=== PATIENT | female | born 1960 | race Caucasian/White ===

== ENCOUNTER 2016-11-07 10:12 | Emergency (ER) | payer BC ==
[2016-11-07 10:19] VITALS: BP 146/76
[2016-11-07] MEDS ORDERED: Tetan/Diph/Pertus SYR(Tdap)* 0.5 ML SYR(BOOSTRIX) use SYR IM ONE (12:03)
--- NOTE | 2016-11-07 12:15 | UC ---
Skin Complaint HPI - HPI Summary HPI Summary: 1) stepped off of a curb yesterday and felt sharp pain on bottom of R foot near 5th distal MT. Did not see open area in shoe or foot, but saw several bent-over nails in the area where she had stepped. Area is still a little sore. Last tdap was 2009. 2) gets precancerous areas tx with liquid nitrogen at derm, had treatments last week on both hands. A couple areas blistered up (which is normal), but one looks very dark red/brown and pt is not sure if this is ok. - History of Current Complaint Chief Complaint: UCSkin Time Seen by Provider: 11/07/16 11:48 Stated Complaint: PUNCTURE WOUND TO FOOT SKIN ISSUE Hx Obtained From: Patient ?: No Onset/Duration: Sudden Onset Timing: Constant Onset Severity: Mild Current Severity: Mild Location: Discrete Character: Pain, Raised Aggravating: Touch Alleviating: Nothing Associated Signs & Symptoms: Positive: Negative - Allergy/Home Medications Allergies/Adverse Reactions: Allergies Allergy/AdvReac Type Severity Reaction Status Date / Time No Known Allergies Allergy Verified 03/14/12 15:57 Review of Systems Constitutional: Negative Skin: Other - blisters, sore spot on foot Eyes: Negative ENT: Negative Respiratory: Negative Cardiovascular: Negative Gastrointestinal: Negative Genitourinary: Negative Motor: Negative Neurovascular: Negative Musculoskeletal: Negative Neurological: Negative Psychological: Negative All Other Systems Reviewed And Are Negative: Yes PMH/Surg Hx/FS Hx/Imm Hx Previously Healthy: Yes - Surgical History Surgical History: Yes Surgery Procedure, Year, and Place: tonsils. D&C 06/2011 endometrial polyp. heart cath 2005 - Family History Known Family History: Negative: Blood Disorder - Social History Alcohol Use: None Substance Use Type: None Smoking Status (MU): Never Smoked Tobacco - Immunization History Most Recent Tetanus Shot: 2009 Physical Exam Triage Information Reviewed: Yes Appearance: Well-Appearing, No Pain Distress, Obese Vital Signs: Initial Vital Signs Temp 98 F 11/07/16 10:16 Pulse 72 11/07/16 10:16 Resp 16 11/07/16 10:16 BP 146/76 11/07/16 10:16 Pulse Ox 100 11/07/16 10:16 Vital Signs Reviewed: Yes Eye Exam: Normal Eyes: Positive: Conjunctiva Clear ENT Exam: Normal ENT: Positive: Normal ENT inspection, Hearing grossly normal, Pharynx normal, TMs normal Dental Exam: Normal Neck exam: Normal Respiratory Exam: Normal Respiratory: Positive: Chest non-tender, Lungs clear, Normal breath sounds, No respiratory distress, No accessory muscle use Musculoskeletal Exam: Normal Musculoskeletal: Positive: Strength Intact, ROM Intact Neurological Exam: Normal Psychological Exam: Normal Skin Exam: Other - R sole of foot intact, no bleeding, PW, FB, or plantar wart noted blisters to R 3rd finger and L 4th finger intact, R hand hemorrhagic Course/Dx - Diagnoses Provider Diagnoses: Contusion to R foot vs. PW. hemorrhagic blisters to bilat hands from liquid nitrogen soto Discharge - Discharge Plan Condition: Stable Disposition: HOME Patient Education Materials: Contusion in Adults (ED), Second Degree Burn (ED) Referrals: Amaris Gorman NP [Primary Care Provider] - Additional Instructions: I do not believe your foot sustained a puncture wound, but we have provided a tetanus shot just in case. The bleeding in the blisters on your fingers is not unusual given the size of the injury or the location.
== END 2016-11-07 12:30 | disposition home or self-care (01) ==
LOC: UCEAST 10:12
DX: S90.31XA Contusion of right foot, initial encounter (principal); S91.311A Laceration without foreign body, right foot, initial encounter; S60.425A Blister (nonthermal) of left ring finger, initial encounter; S60.423A Blister (nonthermal) of left middle finger, initial encounter; W93.11XA Contact with liquid air, initial encounter
CPT/HCPCS: 90471; 90715; 99211; G0463

== ENCOUNTER 2018-11-10 07:22 | Emergency (ER) | payer SELFPAY ==
--- OUTSIDE RECORDS SUMMARY | 2018-11-10 07:30 | XMS REPORT | Continuity of Care Document ---
:1960 External Reference #:[id number] Author Name Sharona Burrell Care Team Providers Name Role Phone Bernadette Almeida MD Primary Care Physician Unavailable Payers Date Identification Numbers Payment Provider Subscriber Effective: 2013 Policy Number: [id number] [employer] Marco Rodriguez PayID: [id number] [address] [place] [address] Effective: 2009 Policy Number: [id number] [employer] Marco Rodriguez Expires: 2011 Group Number: [id number] [address] PayID: [id number] [place] [address] Problems Active Problems Provider Date Benign essential hypertension Amaris Gorman, N.P. Onset: 03/10/2011 Hyperlipidemia Amaris Gomran, N.P. Onset: 03/10/2011 Morbid obesity Amaris Gorman, N.P. Onset: 03/10/2011 Obstructive sleep apnea syndrome Ceci Valera DNP, RN, PRESCHOOL AIDE- Onset: 02/2016 Seasonal allergic rhinitis Óscar Davison M.D.,[facility] Onset: 12/17/2016 Note: and sinusitis Pure hypercholesterolemia Caterina Abad M.D. Onset: 01/19/2017 Body mass index 40+ - severely obese Caterina Abad M.D. Onset: 01/19/2017 Cardiomegaly Caterina Abad M.D. 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 No pets in home / Mother has dog ETOH Use Denies alcohol use Tobacco Use Start: Unknown Patient has never smoked Recreational Drug Use Denies Drug Use Smoking Status Reviewed: 10/20/18 Patient has never smoked Exercise Type/Frequency Exercises sporadically walk Allergies, Adverse Reactions, Alerts Active Allergies Reaction Severity Comments Date Cipro Muscle Pain 12/19/2015 Benzonatate Feeling of throat closure 06/26/2016 Inactive Allergies NKDA 12/09/2005 Medications Active Medications SIG Qnty Indications Ordering Date Provider Amoxicillin/Clavulanate one tablet by 28tabs J01.90 [place] Potassium mouth twice daily Varn, N.P. 9 875-125mg Tablets for 10 days Metoprolol Succinate ER 1/2 every in the 45tabs [place] 100mg morning Varn, N.P. 8 Tablets ER 24HR Fluconazole one by mouth every 3tabs J01.90 [place] 150mg Tablets 3 days for 3 doses Varn, N.P. 8 Lorazepam 1 po bid prn 10tabs F41.1 [place] 1mg Tablets anxiety Varn, N.P. 8 Nystatin after cleansing 60gm B37.2 [place], [id number]/GM Powder and drying [employer] 8 affected area, apply powder liberally every 8 hours Mometasone Furoate reports 17units [place] 50mcg/Act hasn't been using Varn, N.P. 8 Suspension instill 2 sprays into both nostrils twice a day Mupirocin insert 44gm [place] 2% Ointment intranasally twice Varn, N.P. 8 a day for 7 days. Miguelito Mancilla, 5% Cream 7 Simvastatin 1 by mouth every 90tabs [place] 20mg Tablets day Varn, N.P. 6 Niacin ER One po daily 90tabs [place] (Antihyperlipidemic) Varn, N.P. 6 500mg Tablets ER Hydrochlorothiazide take 1 tablet once 30tabs [place] 50mg daily Varn, N.P. 2 Tablets Valacyclovir HCL take 1 tablet by 30tabs [place] 500mg Tablets mouth once daily Varn, N.P. 1 as needed Triamcinolone Acetonide apply twice a day 30gm [place] 0.1% until clear Varn, N.P. 1 Cream Accupril 1 by mouth twice a 180tabs [place] 40mg Tablets day Varn, N.P. 6 Docusate Sodium 2 cap at bedtime Unknown 100mg Capsules prn ( takes 1 tab) 0 Align 1 by mouth every Unknown 4mg Capsules day 0 Singulair 1 by mouth every 30tabs [place] 10mg Tablets day Varn, N.P. 0 Refresh Optive Advanced as needed Unknown 0 0.5-1-0.5% Solution Calcium 600 + D 1 by mouth every Unknown [id number] day 0 Tablets Multivitamins 1 by mouth every Unknown Capsules day 0 [place]-3 Fish Oil 1 tablet po t.i.d Unknown 1200mg 0 Capsules Vitamin D3 1 tablet po qd Unknown 2000Iu 0 Aspirin 1 po qd Unknown 81mg Chewtabs 0 Fexofenadine HCL 1 po qd 30tabs Unknown 180mg Tablets 0 History Medications Amoxicillin/Clavulanate one tablet by 20tabs J01.90 [place] 08/19/2018 - Potassium mouth twice Varn, N.P. 08/29/2018 875-125mg Tablets daily for 10 days Erythromycin apply to right 3.500gm [place] 04/25/2018 - 5mg/GM Ointment eyelids twice a Varn, N.P. 05/09/2018 day until clear Amoxicillin/Clavulanate one tablet by 20tabs J01.90 [place] 03/21/2018 - Potassium mouth twice Varn, N.P. 03/31/2018 875-125mg Tablets daily for 10 days Metoprolol Succinate ER 1/2 every in 45tabs [place] 12/27/2017 - 100mg the morning Varn, N.P. 03/21/2018 Tablets ER 24HR Amoxicillin/Clavulanate one tablet by 20tabs J01.90 [place] 12/06/2017 - Potassium mouth twice Varn, N.P. 12/16/2017 875-125mg Tablets daily for 10 days Clotrimazole/Betamethasone apply 2 - 3 45gm N77.1 [place] 11/15/2017 - Dipropionate times daily as Varn, N.P. 01/25/2018 1-0.05% Cream needed Fluconazole one by mouth 4tabs B37.2 [place] 09/24/2017 - 150mg Tablets every 3 days Varn, N.P. 12/18/2017 for 4 doses Fluconazole one by mouth 3tabs [place] 09/07/2017 - 150mg Tablets may every 3 Varn, N.P. 09/16/2017 days x 3 doses Amoxicillin/Clavulanate one tablet by 20tabs H66.93 [place] 09/06/2017 - Potassium mouth twice Varn, N.P. 09/16/2017 875-125mg Tablets daily for 10 days Cheratussin ac take 5-10 118ml J20.9 [place] 09/06/2017 - 100-10mg/5ML Syrup milliliters Varn, N.P. 09/20/2017 every 4-6 hours as needed for cough. Ventolin HFA 1 to 2 18units J20.9 [place] 09/06/2017 - 108(90Base) mcg/Act inhalations Varn, N.P. 09/20/2017 Aerosol every 4 hours as needed Fluconazole one by mouth 3tabs [place], 08/06/2017 - 150mg Tablets may repeat in 3 [employer] 08/13/2017 days as needed Augmentin 1 tablet by 10tabs [place] 06/21/2017 - 875-125mg Tablets mouth q12 hours Varn, N.P. 06/29/2017 for 5 days Amoxicillin/Clavulanate take one tablet 20tabs J01.90 [place], 2017 - Potassium q12 hours for [employer] 06/19/2017 875-125mg Tablets 10 days Nyata Apply to 90gm [place] 04/28/2017 - 600851Cama/GM Powder affected areas Varn, N.P. 01/25/2018 2 - 3 times daily prn Proctocort insert per 24units [place] 03/24/2017 - 30mg Suppository rectum twice a Varn, N.P. 09/06/2017 day until better Guaifenesin ac 10 - 15 ml by 180ml [place] 03/10/2017 - 100-10mg/5ML Syrup mouth every 4-6 Varn, N.P. 03/24/2017 hours as needed cough Metoprolol Succinate ER 1 by mouth 90tabs [place] 02/17/2017 - 50mg every evening Varn, N.P. 02/27/2017 Tablets ER 24HR Mupirocin apply once 44gm L98.9 [place] 02/17/2017 - 2% Ointment daily to rash Varn, N.P. 03/03/2017 Cephalexin one three times 21tabs L98.9 [place] 02/17/2017 - 500mg Tablets daily for 7 Varn, N.P. 02/24/2017 days Fluconazole one by mouth 3tabs J01.90 [place] 11/19/2016 - 150mg Tablets every 3 days Varn, N.P. 02/26/2017 for 3 doses Amoxicillin/Clavulanate one tablet by 20tabs J01.90 [place] 11/19/2016 - Potassium mouth twice Varn, N.P. 11/29/2016 875-125mg Tablets daily for 10 days Proair HFA take 1-2 puffs 8.5units [place], 06/29/2016 - 108(90Base) mcg/Act every 4-6 hours [employer] 07/13/2016 Aerosol as needed for shortness of breath. Cefuroxime Axetil one tablet 20tabs J01.90 [place], 06/26/2016 - 250mg Tablets twice daily for [employer] 07/04/2016 10 days. Cheratussin ac take 5-10 118ml J01.90 [place], 06/26/2016 - 100-10mg/5ML Syrup milliliters [employer] 07/04/2016 every 4-6 hours as needed for cough. Augmentin one by mouth 28tabs H66.92 [place] 05/01/2016 - 875-125mg Tablets every 12 hours Varn, N.P. 05/15/2016 for 14 days Augmentin one by mouth 20tabs J01.00 [place] 04/03/2016 - 875-125mg Tablets every 12 hours Varn, N.P. 04/13/2016 for ten days Doxycycline Monohydrate 20 milliliters Unknown 12/10/2015 - 25mg/5ML by mouth twice 12/17/2015 Suspension Rec a day for 1 week Ceftin one by mouth 20tabs J01.00 [place] 07/17/2015 - 500mg Tablets twice daily for Varn, N.P. 07/27/2015 10 days Medrol (Javier) 6 tablets po 1Pak [place] 07/05/2015 - 4mg Tablets day 1 5 Varn, N.P. 07/11/2015 tablets po day 2 4 tablets po day 3 3 tablets po day 4 2 tablets po day 5 1 tablet po day 6 Flovent HFA 2 puffs twice 12gm [place] 07/05/2015 - 110mcg/Act Aerosol daily Varn, N.P. 07/19/2015 Levaquin 1 by mouth 10tabs J01.90 [place], 06/17/2015 - 500mg Tablets every day [employer] 06/27/2015 Cheratussin ac take 5-10 118ml R05 [place], 06/17/2015 - 100-10mg/5ML Syrup milliliters [employer] 06/21/2015 every 4-6 hours as needed for cough. Zofran Odt dissolve one 20tabs R11.0 [place] 06/17/2015 - 4mg Tablets Dispers tablet oraly [employer] 06/21/2015 every 8 hours for nausea Fluconazole one by mouth 3tabs [place] 05/24/2015 - 150mg Tablets every 3 days, Varn, N.P. 06/26/2016 for 3 doses Tobramycin 1 drop in each 5ml H10.9 [place] 05/24/2015 - 0.3% Solution eye every Varn, N.P. 05/31/2015 4hours x 7 days Amoxicillin/Clavulanate one tablet by 28tabs J01.00 [place] 05/24/2015 - Potassium mouth twice Varn, N.P. 06/07/2015 875-125mg Tablets daily for 14 days Levaquin 1 by mouth 7tabs [place] 04/23/2015 - 500mg Tablets daily for 7 Varn, N.P. 04/30/2015 days Levofloxacin one by mouth 10tabs [place] 04/10/2015 - 500mg Tablets daily for 10 Varn, N.P. 04/20/2015 days Fluticasone Propionate sprays each 16units [place] 01/31/2015 - 50mcg/Act nostril daily Varn, N.P. 03/02/2015 Suspension as needed Levofloxacin one by mouth 10tabs [facility], 01/03/2015 - 500mg Tablets daily for 10 [employer] 01/17/2015 days Augmentin 1 tablet by 20tabs 461.0 [facility], 12/24/2014 - 875-125mg Tablets mouth q12 hours [employer] 01/04/2015 for 10 days Fluconazole one by mouth 3tabs J01.00 [place] 12/24/2014 - 150mg Tablets every 3 days Varn, N.P. 05/24/2015 for 3 doses Levaquin 1 by mouth 10tabs 461.0 [place] 07/18/2014 - 500mg Tablets daily for 10 Varn, N.P. 07/28/2014 days Denavir apply three 30.0units 054.79 [place] 07/18/2014 - 1% Cream times daily as Varn, N.P. 05/01/2016 needed Fluconazole one by mouth 3tabs 461.0 [place] 07/18/2014 - 150mg Tablets every 3 days Varn, N.P. 12/24/2014 for 3 doses Levaquin 1 by mouth 10tabs 461.0 [place] 05/21/2014 - 500mg Tablets daily for 10 Varn, N.P. 05/31/2014 days Xanax one by mouth up 10tabs 300.00 [place] 05/21/2014 - 0.25mg Tablets to three times Varn, N.P. 05/01/2016 daily as needed for anxiety Diflucan one po q 3 days 3tabs 461.0 [place] 05/21/2014 - 150mg Tablets Varn, N.P. 01/22/2015 Flovent HFA 2 puffs twice 1units [facility], 04/30/2014 - 44mcg/Act Aerosol daily for 10 [employer] 05/21/2014 days Guaifenesin ac 10ml every 4-6 473ml [facility], 04/23/2014 - 100-10mg/5ML Syrup hours for cough [employer] 05/21/2014 Azithromycin 2 tabs by mouth 6tabs 466.0 [facility], 04/19/2014 - 250mg Tablets every day x1 [employer] 05/21/2014 day, 1 tab by mouth every day x 4 days Benzonatate take one or two 30caps 466.0 [facility], 04/19/2014 - 100mg Capsules capsules every [employer] 05/21/2014 8 hours as needed for cough. Amoxicillin/Clavulanate one tablet by 28tabs 461.0 [place] 03/23/2014 - Potassium mouth twice Varn, N.P. 04/06/2014 875-125mg Tablets daily for 14 days Vitamin D (Ergocalciferol) one po once 8caps [place] 02/26/2014 - weekly Varn, N.P. 02/26/2014 26322Htbk Capsules Miconazole 3 Apply bid until 60gm 112.3 [place] 02/26/2014 - 4% Cream rash clears Varn, N.P. 11/19/2016 Augmentin one by mouth 20tabs 461.0 [place] 01/31/2014 - 875-125mg Tablets every 12 hours Varn, N.P. 02/10/2014 for ten days Fluconazole one by mouth 9tabs 461.0 [place] 01/31/2014 - 150mg Tablets every 3 days Varn, N.P. 02/09/2014 Levaquin 1 by mouth 10tabs [place] 08/14/2013 - 500mg Tablets daily for 10 Varn, N.P. 08/24/2013 days Augmentin one by mouth 20tabs 461.0 [place] 08/04/2013 - 875-125mg Tablets every 12 hours Varn, N.P. 08/14/2013 for ten days Fluconazole one po q 3 days 3tabs 461.0 [place] 08/04/2013 - 150mg Tablets Varn, N.P. 01/31/2014 Augmentin one by mouth 20tabs 461.0 [place] 05/16/2013 - 875-125mg Tablets every 12 hours Varn, N.P. 05/26/2013 for ten days Augmentin one by mouth 20tabs 461.0 [place] 02/21/2013 - 875-125mg Tablets every 12 hours Varn, N.P. 03/03/2013 for ten days Anucort-HC insert 30units 578.1 [place] 02/21/2013 - 25mg Suppository suppository in Varn, N.P. 02/28/2013 rectum twice a day for7 days Azithromycin two tabs day 6tabs [place] 12/19/2012 - 250mg Tablets one, one daily Varn, N.P. 12/24/2012 till gone Diltiazem HCL take 1 tablet 90tabs I10 [place] 12/02/2012 - 60mg Tablets by mouth once Varn, N.P. 02/17/2017 daily Alprazolam one by mouth up 20tabs 300.00 [place] 11/23/2012 - 0.25mg Tablets to three times Varn, N.P. 02/26/2014 daily as needed for anxiety Doxycycline Hyclate 100 mg orally 14tabs 461.0 [facility] 09/08/2012 - 100mg Tablets twice daily x 7 [facility], 09/08/2012 DR days N.P. Amoxicillin/Clavulanate one tablet by 20tabs 461.0 [facility] 09/08/2012 - Potassium mouth twice [facility], 11/23/2012 875-125mg Tablets daily for 10 N.P. days Diflucan po x1 day 1tabs 461.0 [facility] 09/08/2012 - 150mg Tablets [facility]2012 N.P. Lotrisone apply 15gm [place] 07/01/2012 - 1-0.05% Cream externally Varn, N.P. 11/19/2016 bid-tid Diflucan sig 1 po repeat 2tabs [place] 06/27/2012 - 150mg Tablets in 3 days if Varn, N.P. 09/08/2012 needed Amoxicillin/Clavulanate one tablet by 20tabs 461.0 [place] 06/23/2012 - Potassium mouth twice Varn, N.P. 07/03/2012 875-125mg Tablets daily for 10 days Benzonatate one by mouth 30caps 461.0 [place] 06/23/2012 - 100mg Capsules three times Varn, N.P. 07/07/2012 daily as needed for cough Flovent HFA 2 puffs twice 1units 461.0 [place] 06/23/2012 - 44mcg/Act Aerosol daily Varn, N.P. 07/23/2012 Flovent HFA 2 puffs twice 1units 466.0 [place] 05/16/2012 - 44mcg/Act Aerosol daily Varn, N.P. 06/15/2012 Ventolin HFA 1 to 2 1inhaler 466.0 [place] 05/16/2012 - 108(90Base) mcg/ac inhalations Varn, N.P. 06/15/2012 Aerosol every 4 hours as needed Mupirocin prn 22gm [place] 05/16/2012 - 2% Ointment Varn, N.P. 11/19/2016 Azithromycin two tabs day 6tabs [place] 04/30/2012 - 250mg Tablets one, one daily Varn, N.P. 05/10/2012 till gone Benzonatate one by mouth 30caps [place] 04/29/2012 - 200mg Capsules three times Varn, N.P. 05/13/2012 daily as needed for cough Tamiflu 1 po bid x 5 10caps 466.0 [place] 04/29/2012 - 75mg Capsules days Varn, N.P. 04/30/2012 Sulfamethoxazole/Trimethopr one po bid for 20tabs 682.8 Evelyn Barraza, 03/23 - im DS 10 days M.D., FACP 04/02/2012 800-160mg Tablets Fluconazole 3 tablets po 6tabs 682.8 [place] 03/23/2012 - 100mg Tablets and repeat in 1 Varn, N.P. 04/06/2012 week Cardizem one po daily 90tabs 401.1 [place] 12/31/2011 - 60mg Tablets Varn, N.P. 12/02/2012 Amlodipine Besylate 1 po qd 30tabs 401.1 [place] 12/16/2011 - 5mg Tablets Varn, N.P. 12/31/2011 Nystatin apply twice 30gm 112.3 [place] 03/10/2011 - 754052Ogrk/GM Powder daily until Varn, N.P. 02/26/2014 rash clears prn Toprol XL 1 po bid 60tabs [facility]. 12/16/2005 - [facility] Hydrochlorothiazide 1 PO qd 90tabs [facility] S. 12/09/2005 - 25mg Tablets [facility], 10/01/2011 M.D. Pravachol One QHS [facility]beh S. 12/09/2005 - 40mg Tablets [facility], 03/10/2011 M.D. Aspirin 1 PO qd 90units [facility] S. 12/09/2005 - 325mg Gelcaps [facility], 03/10/2011 M.D. Toprol XL 1 po qd 30tabs [facility]. 11/26/2005 - 50[facility] 12/16[facility]2005 M.D. Allopurinol 1 po qd 30tabs Unknown - 100mg Tablets 10/01/2011 Simcor 1 by mouth 30tabs [facility] - 500-20mg Tablets ER 24HR every night Varn, N.P. 03/12/2016 Nasonex instill 2 17units [facility] - 50mcg/Act Suspension sprays into Varn, N.P. 07/26/2017 both nostrils twice a day Metoprolol Succinate ER take 1 tablet 45tabs [facility] - 100mg by mouth every Varn, N.P. 12/27/2017 Tablets ER 24HR day at bedtime Medications Administered in Office Medication SIG Qnty Indications Ordering Provider Date Depomedrol 40MG RAVIN Mc 05/26/2018 Injection Immunizations CPT Code Status Date Vaccine Lot # 60438 Given 01/06/2018 Influenza Virus Vaccine, Quadrivalent, Split, Preservative Free [id number] Given 01/08/2017 Influenza Virus Vaccine, Quadrivalent, Split, Preservative Free [id number] Given 01/08/2016 Afluria Vaccine 33770 Given 01/28/2011 Influenza Virus 3Yrs & Over Vital Signs Date Vital Result Comment 10/20/2018 10:31am Height 60 inches 5'0" Weight 236.00 lb Heart Rate 71 /min BP Systolic 121 mmHg BP Diastolic 71 mmHg Body Temperature 97.9 F O2 % BldC Oximetry 97 % BMI (Body Mass Index) 46.1 kg/m2 08/19/2018 10:13am Height 60 inches 5'0" Weight 238.00 lb Heart Rate 77 /min BP Systolic Sitting 128 mmHg BP Diastolic Sitting 79 mmHg Body Temperature 97.7 F O2 % BldC Oximetry 98 % BMI (Body Mass Index) 46.5 kg/m2 05/26/2018 10:10am Height 60 inches 5'0" Weight 234.00 lb BP Systolic 132 mmHg BP Diastolic 82 mmHg Respiratory Rate 16 /min Body Temperature 96.7 F Pain Level 0 BMI (Body Mass Index) 45.7 kg/m2 05/02/2018 10:37am Height 60 inches 5'0" Weight 234.00 lb Heart Rate 84 /min BP Systolic 145 mmHg BP Diastolic 77 mmHg Body Temperature 97.2 F O2 % BldC Oximetry 97 % BMI (Body Mass Index) 45.7 kg/m2 04/21/2018 10:32am Height 60 inches 5'0" Weight 237.00 lb Heart Rate 64 /min BP Systolic 121 mmHg BP Diastolic 65 mmHg Body Temperature 98.1 F O2 % BldC Oximetry 100 % BMI (Body Mass Index) 46.3 kg/m2 03/21/2018 10:51am Height 60 inches 5'0" Weight 232.00 lb Heart Rate 75 /min BP Systolic 138 mmHg BP Diastolic 76 mmHg Body Temperature 97.8 F O2 % BldC Oximetry 98 % BMI (Body Mass Index) 45.3 kg/m2 01/25/2018 2:28pm Height 60 inches 5'0" Weight 231.00 lb Heart Rate 62 /min BP Systolic 130 mmHg BP Diastolic 80 mmHg Body Temperature 97.5 F O2 % BldC Oximetry 98 % BMI (Body Mass Index) 45.1 kg/m2 01/12/2018 4:04pm Height 60 inches 5'0" Weight 230.00 lb Heart Rate 56 /min BP Systolic Sitting 150 mmHg BP Diastolic Sitting 78 mmHg O2 % BldC Oximetry 98 % BMI (Body Mass Index) 44.9 kg/m2 01/04/2018 10:50am Height 60 inches 5'0" Weight 232.00 lb Heart Rate 74 /min BP Systolic 158 mmHg BP Diastolic 82 mmHg Body Temperature 97.9 F O2 % BldC Oximetry 97 % BMI (Body Mass Index) 45.3 kg/m2 12/27/2017 1:13pm Height 60 inches 5'0" Weight 232.00 lb Heart Rate 66 /min BP Systolic 160 mmHg BP Diastolic 80 mmHg Body Temperature 97.7 F O2 % BldC Oximetry 99 % BMI (Body Mass Index) 45.3 kg/m2 12/14/2017 11:31am Height 60 inches 5'0" Weight 237.00 lb Heart Rate 61 /min BP Systolic 122 mmHg BP Diastolic 80 mmHg Body Temperature 97.0 F O2 % BldC Oximetry 98 % BMI (Body Mass Index) 46.3 kg/m2 12/06/2017 9:21am Height 60 inches 5'0" Weight 240.00 lb Heart Rate 69 /min BP Systolic 138 mmHg BP Diastolic 68 mmHg Body Temperature 96.6 F O2 % BldC Oximetry 99 % BMI (Body Mass Index) 46.9 kg/m2 11/15/2017 3:11pm Height 60 inches 5'0" Weight 243.00 lb Heart Rate 74 /min BP Systolic 136 mmHg BP Diastolic 78 mmHg Body Temperature 97.4 F O2 % BldC Oximetry 96 % BMI (Body Mass Index) 47.5 kg/m2 10/20/2017 2:44pm Height 60 inches 5'0" Weight 244.50 lb Heart Rate 66 /min BP Systolic Sitting 122 mmHg Lue large cuff BP Diastolic Sitting 66 mmHg Lue large cuff Respiratory Rate 18 /min O2 % BldC Oximetry 98 % On Ra BMI (Body Mass Index) 47.7 kg/m2 09/24/2017 2:28pm Height 60 inches 5'0" Weight 247.50 lb Heart Rate 81 /min BP Systolic 122 mmHg BP Diastolic 70 mmHg Body Temperature 97.2 F O2 % BldC Oximetry 97 % BMI (Body Mass Index) 48.3 kg/m2 09/06/2017 11:19am Height 60 inches 5'0" Weight 242.00 lb Heart Rate 73 /min BP Systolic Sitting 138 mmHg BP Diastolic Sitting 70 mmHg Body Temperature 99.1 F O2 % BldC Oximetry 91 % BMI (Body Mass Index) 47.3 kg/m2 08/06/2017 11:27am Weight 246.75 lb BP Systolic 124 mmHg BP Diastolic 70 mmHg Body Temperature 97.0 F 06/21/2017 8:46am Weight 244.00 lb Heart Rate 68 /min BP Systolic 124 mmHg BP Diastolic 68 mmHg Body Temperature 97.7 F O2 % BldC Oximetry 97 % 06/14/2017 11:28am Weight 238.25 lb Heart Rate 63 /min BP Systolic Sitting 138 mmHg BP Diastolic Sitting 80 mmHg O2 % BldC Oximetry 98 % 04/21/2017 1:20pm Height 60 inches 5'0" Weight 243.00 lb w/o shoes Heart Rate 64 /min reg BP Systolic Sitting 110 mmHg Lue, lg cuff BP Diastolic Sitting 76 mmHg Lue, lg cuff Respiratory Rate 16 /min O2 % BldC Oximetry 97 % on Ra BMI (Body Mass Index) 47.5 kg/m2 02/24/2017 3:33pm Weight 240.25 lb Heart Rate 67 /min BP Systolic 118 mmHg BP Diastolic 60 mmHg Body Temperature 98.3 F O2 % BldC Oximetry 96 % 02/17/2017 2:10pm Heart Rate 57 /min BP Systolic 128 mmHg BP Diastolic 80 mmHg Body Temperature 98.5 F O2 % BldC Oximetry 97 % 02/04/2017 1:21pm Height 50 inches 4'2" Weight 243.00 lb with shoes Heart Rate 66 /min BP Systolic Sitting 120 mmHg Lue lg cuff BP Diastolic Sitting 74 mmHg Lue lg cuff BP Systolic Standing 120 mmHg Lue lg cuff BP Diastolic Standing 80 mmHg Lue lg cuff Respiratory Rate 16 /min BMI (Body Mass Index) 68.3 kg/m2 Ejection Fraction 55-60% date 01/28/17 ECHO 02/02/2017 9:42am Heart Rate 108 /min BP Systolic 124 mmHg BP Diastolic 72 mmHg Body Temperature 97.4 F O2 % BldC Oximetry 98 % 01/26/2017 4:07pm Weight 245.50 lb Heart Rate 62 /min BP Systolic 120 mmHg BP Diastolic 70 mmHg Body Temperature 97.5 F O2 % BldC Oximetry 97 % 01/19/2017 2:27pm Height 59 inches 4'11" Weight 245.00 lb with shoes Heart Rate 70 /min BP Systolic 110 mmHg Rue lg cuff BP Diastolic 70 mmHg Rue lg cuff BP Systolic Sitting 118 mmHg Lue lg cuff BP Diastolic Sitting 80 mmHg Lue lg cuff BP Systolic Standing 120 mmHg Lue lg cuff BP Diastolic Standing 80 mmHg Lue lg cuff Respiratory Rate 17 /min BMI (Body Mass Index) 49.5 kg/m2 Ejection Fraction 60-65% date 04/06/14 ECHO 01/15/2017 4:17pm Weight 245.50 lb Heart Rate 62 /min BP Systolic 118 mmHg BP Diastolic 66 mmHg Body Temperature 98.2 F O2 % BldC Oximetry 99 % 12/17/2016 10:46am Weight 245.50 lb Heart Rate 63 /min BP Systolic Sitting 128 mmHg BP Diastolic Sitting 78 mmHg Body Temperature 97.8 F O2 % BldC Oximetry 98 % 11/26/2016 10:59am Height 60 inches 5'0" Weight 247.25 lb Heart Rate 58 /min BP Systolic 120 mmHg BP Diastolic 70 mmHg Body Temperature 98.1 F O2 % BldC Oximetry 98 % BMI (Body Mass Index) 48.3 kg/m2 11/19/2016 9:41am Weight 246.50 lb Heart Rate 60 /min BP Systolic 138 mmHg BP Diastolic 78 mmHg Body Temperature 98.2 F O2 % BldC Oximetry 97 % 10/13/2016 2:39pm Height 61 inches 5'1" Weight 250.00 lb Heart Rate 60 /min BP Systolic Sitting 118 mmHg BP Diastolic Sitting 62 mmHg Respiratory Rate 14 /min Pain Level 0 O2 % BldC Oximetry 98 % BMI (Body Mass Index) 47.2 kg/m2 09/09/2016 4:10pm Weight 253.75 lb Heart Rate 61 /min BP Systolic 130 mmHg BP Diastolic 78 mmHg Body Temperature 97.2 F O2 % BldC Oximetry 98 % 06/30/2016 3:55pm Weight 255.00 lb Heart Rate 77 /min BP Systolic 130 mmHg BP Diastolic 76 mmHg Body Temperature 98.7 F O2 % BldC Oximetry 98 % 06/29/2016 8:14am Height 60 inches 5'0" Weight 254.00 lb Heart Rate 78 /min BP Systolic Sitting 132 mmHg BP Diastolic Sitting 79 mmHg Respiratory Rate 16 /min O2 % BldC Oximetry 98 % BMI (Body Mass Index) 49.6 kg/m2 06/26/2016 9:08am Weight 254.00 lb Heart Rate 72 /min BP Systolic Sitting 126 mmHg BP Diastolic Sitting 78 mmHg Respiratory Rate 16 /min Body Temperature 99.1 F O2 % BldC Oximetry 98 % 05/01/2016 3:47pm Height 59.75 inches 4'11.75" Weight 258.00 lb Heart Rate 64 /min BP Systolic 136 mmHg BP Diastolic 80 mmHg Body Temperature 99.1 F O2 % BldC Oximetry 97 % BMI (Body Mass Index) 50.8 kg/m2 04/03/2016 8:38am Weight 262.00 lb Heart Rate 68 /min BP Systolic Sitting 132 mmHg BP Diastolic Sitting 80 mmHg BP Systolic Recheck 148 mmHg BP Diastolic Recheck 84 mmHg Respiratory Rate 15 /min Body Temperature 98.2 F O2 % BldC Oximetry 98 % 01/28/2016 3:56pm Height 59.75 inches 4'11.75" Weight 281.38 lb Heart Rate 86 /min BP Systolic 138 mmHg BP Diastolic 84 mmHg Respiratory Rate 14 /min O2 % BldC Oximetry 98 % BMI (Body Mass Index) 55.4 kg/m2 12/11/2015 7:59am Height 59.75 inches 4'11.75" Weight 291.00 lb Heart Rate 68 /min BP Systolic 128 mmHg BP Diastolic 88 mmHg Respiratory Rate 14 /min O2 % BldC Oximetry 96 % BMI (Body Mass Index) 57.3 kg/m2 11/11/2015 8:36am Height 59.75 inches 4'11.75" Weight 291.50 lb Heart Rate 85 /min BP Systolic 130 mmHg BP Diastolic 80 mmHg Respiratory Rate 14 /min O2 % BldC Oximetry 96 % BMI (Body Mass Index) 57.4 kg/m2 Neck Circumference in inches 16 10/03/2015 10:03am Height 59.75 inches 4'11.75" Weight 290.00 lb Heart Rate 78 /min BP Systolic Sitting 140 mmHg BP Diastolic Sitting 80 mmHg Body Temperature 97.0 F O2 % BldC Oximetry 98 % BMI (Body Mass Index) 57.1 kg/m2 07/17/2015 1:19pm Weight 292.00 lb Heart Rate 80 /min BP Systolic Sitting 124 mmHg BP Diastolic Sitting 80 mmHg Respiratory Rate 14 /min Body Temperature 98.4 F O2 % BldC Oximetry 98 % 06/17/2015 9:23am Weight 289.00 lb Heart Rate 82 /min BP Systolic Sitting 132 mmHg BP Diastolic Sitting 82 mmHg Respiratory Rate 14 /min Body Temperature 100.0 F O2 % BldC Oximetry 98 % 05/24/2015 11:20am Weight 291.00 lb Heart Rate 72 /min BP Systolic Sitting 122 mmHg BP Diastolic Sitting 82 mmHg Respiratory Rate 14 /min Body Temperature 98.5 F O2 % BldC Oximetry 98 % 04/10/2015 11:26am Weight 291.25 lb Heart Rate 75 /min BP Systolic Sitting 132 mmHg BP Diastolic Sitting 77 mmHg Body Temperature 98.1 F O2 % BldC Oximetry 98 % 01/10/2015 9:42am Weight 291.00 lb Heart Rate 78 /min BP Systolic Sitting 124 mmHg BP Diastolic Sitting 68 mmHg Body Temperature 97.5 F 01/08/2015 3:14pm Weight 290.00 lb Heart Rate 84 /min BP Systolic Sitting 138 mmHg BP Diastolic Sitting 86 mmHg Body Temperature 98.0 F O2 % BldC Oximetry 98 % 12/24/2014 1:45pm Height 60 inches 5'0" Weight 290.25 lb Heart Rate 92 /min BP Systolic Sitting 132 mmHg BP Diastolic Sitting 80 mmHg Body Temperature 98.1 F O2 % BldC Oximetry 97 % BMI (Body Mass Index) 56.7 kg/m2 07/18/2014 3:01pm Height 60 inches 5'0" Weight 290.00 lb Heart Rate 78 /min BP Systolic 137 mmHg BP Diastolic 72 mmHg BMI (Body Mass Index) 56.6 kg/m2 05/21/2014 2:10pm Weight 287.00 lb Heart Rate 74 /min BP Systolic Sitting 122 mmHg BP Diastolic Sitting 80 mmHg Body Temperature 98.1 F 04/19/2014 10:36am Height 58.75 inches 4'10.75" Weight 285.50 lb Heart Rate 86 /min BP Systolic Sitting 128 mmHg BP Diastolic Sitting 72 mmHg Body Temperature 98.6 F O2 % BldC Oximetry 96 % BMI (Body Mass Index) 58.1 kg/m2 04/09/2014 3:23pm Height 58.75 inches 4'10.75" Weight 286.00 lb without shoes Heart Rate 78 /min BP Systolic 110 mmHg Ra lg cuff BP Diastolic 64 mmHg Ra lg cuff BP Systolic Sitting 124 mmHg LA lg cuff BP Diastolic Sitting 80 mmHg LA lg cuff BP Systolic Standing 130 mmHg LA lg cuff BP Diastolic Standing 80 mmHg LA lg cuff Respiratory Rate 17 /min BMI (Body Mass Index) 58.3 kg/m2 03/23/2014 11:21am Height 60.5 inches 5'0.50" Weight 285.00 lb Heart Rate 60 /min BP Systolic Sitting 122 mmHg BP Diastolic Sitting 68 mmHg Body Temperature 97.8 F O2 % BldC Oximetry 99 % BMI (Body Mass Index) 54.7 kg/m2 02/26/2014 9:15am Height 60.5 inches 5'0.50" Weight 286.00 lb Heart Rate 72 /min BP Systolic Sitting 120 mmHg BP Diastolic Sitting 78 mmHg BMI (Body Mass Index) 54.9 kg/m2 01/31/2014 2:07pm Weight 290.50 lb Heart Rate 75 /min BP Systolic Sitting 140 mmHg BP Diastolic Sitting 78 mmHg Body Temperature 99.3 F oral O2 % BldC Oximetry 99 % 10/16/2013 2:28pm Weight 292.50 lb Heart Rate 84 /min BP Systolic Sitting 136 mmHg BP Diastolic Sitting 84 mmHg Body Temperature 97.6 F 08/04/2013 11:33am Weight 294.00 lb Heart Rate 77 /min BP Systolic 132 mmHg BP Diastolic 82 mmHg Body Temperature 98.1 F 05/16/2013 8:38am Weight 288.75 lb Heart Rate 88 /min BP Systolic Sitting 160 mmHg BP Diastolic Sitting 84 mmHg Body Temperature 98.3 F 02/21/2013 4:35pm Weight 286.00 lb Heart Rate 84 /min BP Systolic 150 mmHg BP Diastolic 82 mmHg Body Temperature 98.7 F 01/20/2013 1:44pm Weight 286.00 lb Heart Rate 84 /min BP Systolic Sitting 134 mmHg BP Diastolic Sitting 82 mmHg 11/23/2012 11:11am Weight 284.75 lb Heart Rate 88 /min BP Systolic Sitting 142 mmHg BP Diastolic Sitting 84 mmHg Body Temperature 97.6 F 09/08/2012 12:25pm Height 60 inches 5'0" Weight 291.25 lb Heart Rate 92 /min BP Systolic Sitting 144 mmHg BP Diastolic Sitting 84 mmHg Respiratory Rate 18 /min Body Temperature 98.1 F O2 % BldC Oximetry 95 % BMI (Body Mass Index) 56.9 kg/m2 07/13/2012 3:09pm Height 60 inches 5'0" Weight 287.00 lb Heart Rate 84 /min BP Systolic Sitting 140 mmHg BP Diastolic Sitting 88 mmHg Body Temperature 98.9 F Tympanically BMI (Body Mass Index) 56.0 kg/m2 06/23/2012 11:14am Height 60 inches 5'0" Weight 289.00 lb Heart Rate 84 /min BP Systolic Sitting 140 mmHg BP Diastolic Sitting 80 mmHg Body Temperature 98.5 F BMI (Body Mass Index) 56.4 kg/m2 05/16/2012 12:59pm Height 60 inches 5'0" Weight 286.00 lb Heart Rate 78 /min BP Systolic Sitting 130 mmHg BP Diastolic Sitting 82 mmHg Body Temperature 98.8 F BMI (Body Mass Index) 55.8 kg/m2 04/29/2012 11:24am Height 60 inches 5'0" Weight 282.00 lb Heart Rate 76 /min BP Systolic Sitting 132 mmHg BP Diastolic Sitting 84 mmHg Body Temperature 101.3 F BMI (Body Mass Index) 55.1 kg/m2 04/05/2012 8:54am Height 60 inches 5'0" Weight 281.00 lb Heart Rate 78 /min BP Systolic Sitting 130 mmHg BP Diastolic Sitting 80 mmHg BMI (Body Mass Index) 54.9 kg/m2 03/31/2012 4:01pm Height 60 inches 5'0" Weight 238.00 lb Heart Rate 78 /min BP Systolic Sitting 118 mmHg BP Diastolic Sitting 78 mmHg Body Temperature 98.9 F BMI (Body Mass Index) 46.5 kg/m2 03/23/2012 10:26am Height 60 inches 5'0" Weight 279.00 lb Heart Rate 70 /min BP Systolic Sitting 130 mmHg BP Diastolic Sitting 80 mmHg Body Temperature 98.5 F BMI (Body Mass Index) 54.5 kg/m2 03/01/2012 1:21pm Height 60 inches 5'0" Weight 282.00 lb Heart Rate 80 /min BP Systolic Sitting 152 mmHg BP Diastolic Sitting 92 mmHg BP Systolic Recheck 132 mmHg BP Diastolic Recheck 84 mmHg BMI (Body Mass Index) 55.1 kg/m2 01/18/2012 3:52pm Height 60 inches 5'0" Weight 282.00 lb Heart Rate 80 /min BP Systolic Sitting 158 mmHg home cuff readin/91 pulse 83 BP Diastolic Sitting 88 mmHg home cuff readin/91 pulse 83 BMI (Body Mass Index) 55.1 kg/m2 12/31/2011 10:15am Height 60 inches 5'0" Weight 280.25 lb Heart Rate 80 /min BP Systolic Sitting 152 mmHg BP Diastolic Sitting 90 mmHg BMI (Body Mass Index) 54.7 kg/m2 12/16/2011 9:54am Height 60 inches 5'0" Weight 278.00 lb Heart Rate 80 /min BP Systolic Sitting 154 mmHg BP Diastolic Sitting 90 mmHg Body Temperature 99.1 F BMI (Body Mass Index) 54.3 kg/m2 10/27/2011 2:40pm Height 60 inches 5'0" Weight 279.00 lb Heart Rate 84 /min BP Systolic Sitting 120 mmHg BP Diastolic Sitting 82 mmHg BMI (Body Mass Index) 54.5 kg/m2 10/06/2011 3:58pm Height 60 inches 5'0" Weight 278.00 lb Heart Rate 80 /min BP Systolic Sitting 126 mmHg BP Diastolic Sitting 84 mmHg Body Temperature 98.5 F BMI (Body Mass Index) 54.3 kg/m2 09/30/2011 11:32am Height 60 inches 5'0" Weight 278.00 lb Heart Rate 84 /min BP Systolic Sitting 158 mmHg BP Diastolic Sitting 86 mmHg BMI (Body Mass Index) 54.3 kg/m2 03/24/2011 1:16pm Height 60 inches 5'0" Weight 277.00 lb Heart Rate 72 /min BP Systolic Sitting 122 mmHg L BP Diastolic Sitting 78 mmHg L BMI (Body Mass Index) 54.1 kg/m2 03/10/2011 1:19pm Height 60 inches 5'0" Weight 282.00 lb Heart Rate 80 /min BP Systolic Sitting 132 mmHg l BP Diastolic Sitting 80 mmHg l BMI (Body Mass Index) 55.1 kg/m2 12/16/2005 2:04pm Height 60 inches 5'0" Heart Rate 78 /min Reg BP Systolic Sitting 144 mmHg BP Diastolic Sitting 80 mmHg 12/09/2005 2:50pm Height 60 inches 5'0" Weight 250.00 lb Heart Rate 92 /min reg BP Systolic Sitting 130 mmHg BP Diastolic Sitting 90 mmHg Body Temperature 97.8 F BMI (Body Mass Index) 48.8 kg/m2 Results Test Date Facility Test Result H/L Range Note MMRV Immune 10/07/2018 [facility] Rubella Screen Immune Immune Status Profile, [address] [place] [address] [phone] Rubeola Measles 10/07/2018 [facility] Rubeola Positive 1 Igg AB [address] (Measles) [place] [address] Antibody [phone] Rubeola IgG Antibody Index 4.1 2 Mumps Igg 10/07/2018 [facility] Mumps Virus IgG Antibody Positive [address] [place] [address] [phone] Mumps IgG Antibody Index 6.3 4 Varicella Zoster 10/07/2018 [facility] Varicella-Zoster IgG Positive 5 Igg AB [address] [place] [address] [phone] Varicella IgG Antibody Index >8.0 6 Urine Culture And 03/21/2018 [facility] Urine Culture SEE RESULT [address] [place] [address] [phone] Ua Routine 03/21/2018 [facility] Ua Specific 1005 [address] Ua PH 7 Ua Color yellow Ua Appera clear Ua WBC negative Ua Protein negative Ua Glucose negative Ua Ketones negative Ua Bilirubin negative Ua Urobilinogen negative Ua Nitrite negative Ua Occult Blood negative Laboratory test 01/04/2018 [facility] Hemoglobin A1c 4.9 % N 4.0-5.6 [address] (Glyco HGB) [place] [address] [phone] Ua Routine 12/14/2017 [facility] Ua Specific 1010 [address] Ua PH 5 Ua Color yellow Ua Appera clear Ua WBC trace Ua Protein negative Ua Glucose negative Ua Ketones negative Ua Bilirubin negative Ua Urobilinogen negative Ua Nitrite negative Ua Occult Blood negative Urine Culture And 12/06/2017 [facility] Urine Culture SEE RESULT [address] [place] [address] [phone] Ua Routine 12/06/2017 [facility] Ua Specific 1005 [address] Ua PH 6 Ua Color yellow Ua Appera clear Ua WBC negative Ua Protein negative Ua Glucose negative Ua Ketones negative Ua Bilirubin negative Ua Urobilinogen negative Ua Nitrite negative Ua Occult Blood negative Comp Metabolic Panel 11/19/2017 [facility] Sodium 140 mmol/L N 135-[address] [place] [address] [phone] Potassium 3.5 mmol/L N 3.5-5.0 Chloride 103 mmol/L N 101-111 Co2 Carbon Dioxide 29 mmol/L N 22-32 Anion Gap 8 mmol/L N 2-11 Glucose 98 mg/dL N 70-100 Blood Urea Nitrogen 13 mg/dL N 6-24 Creatinine 0.70 mg/dL N 0.51-0.95 BUN/Creatinine Ratio 18.6 N 8-20 Calcium 9.7 mg/dL N 8.6-10.3 Total Protein 6.9 g/dL N 6.4-8.9 Albumin 4.2 g/dL N 3.2-5.2 Globulin 2.7 g/dL N 2-4 Albumin/Globulin Ratio 1.6 N 1-3 Total Bilirubin 0.50 mg/dL N 0.2-1.0 Alkaline Phosphatase 62 U/L N 34-104 Alt 18 U/L N 7-52 Ast 20 U/L N 13-39 Egfr Non- 86.6 >60 Egfr 104.7 >60 10 Lipid Profile 11/19/2017 [facility] Triglycerides 128 mg/dL 11 (Trig/Chol/HDL) [address] [place] [address] [phone] Cholesterol 139 mg/dL 12 HDL Cholesterol 40.9 mg/dL 13 LDL Cholesterol 73 mg/dL 14 Laboratory test 11/19/2017 [facility] Vitamin D 38.5 ng/mL N 20-[address] Total 25(Oh) [place], [place] [id number] [phone] Rapid Influenza 09/06/2017 [facility] Influenza A NEGATIVE Negative 15 A & B Molecular [address] [place] [address] [phone] Influenza B Molecular NEGATIVE Negative Laboratory test 09/06/2017 [facility] Influenza A & B SEE RESULT [address] [place] [address] [phone] CBC Auto Diff 06/14/2017 [facility] White Blood 10.2 10^3/uL N 3.5-[address] Count .8 [place] [address] [phone] Red Blood Count 4.57 10^6/uL N 4.0-5.4 Hemoglobin 13.9 g/dL N 12.0-16.0 Hematocrit 40 % N 35-47 Mean Corpuscular Volume 88 fL N 80-97 Mean Corpuscular Hemoglobin 30 pg N 27-31 Mean Corpuscular HGB Conc 34 g/dL N 31-36 Red Cell Distribution Width 13 % N 10.5-15 Platelet Count 333 10^3/uL N 150-450 Mean Platelet Volume 8 um3 N 7.4-10.4 Abs Neutrophils 6.5 10^3/uL N 1.5-7.7 Abs Lymphocytes 2.6 10^3/uL N 1.0-4.8 Abs Monocytes 0.8 10^3/uL N 0-0.8 Abs Eosinophils 0.2 10^3/uL N 0-0.6 Abs Basophils 0.1 10^3/uL N 0-0.2 Abs Nucleated RBC 0 10^3/uL Granulocyte % 64.0 % N 38-83 Lymphocyte % 25.5 % N 25-47 Monocyte % 7.5 % N 1-9 Eosinophil % 2.1 % N 0-6 Basophil % 0.9 % N 0-2 Nucleated Red Blood Cells % 0 Comp Metabolic Panel 06/14/2017 [facility] Sodium 142 mmol/L N 133-145 [address] [place] [address] [phone] Potassium 4.0 mmol/L N 3.5-5.0 Chloride 105 mmol/L N 101-111 Co2 Carbon Dioxide 30 mmol/L N 22-32 Anion Gap 7 mmol/L N 2-11 Glucose 84 mg/dL N 70-100 Blood Urea Nitrogen 16 mg/dL N 6-24 Creatinine 0.69 mg/dL N 0.51-0.95 BUN/Creatinine Ratio 23.2 High 8-20 Calcium 9.5 mg/dL N 8.6-10.3 Total Protein 6.5 g/dL N 6.4-8.9 Albumin 4.0 g/dL N 3.2-5.2 Globulin 2.5 g/dL N 2-4 Albumin/Globulin Ratio 1.6 N 1-3 Total Bilirubin 0.40 mg/dL N 0.2-1.0 Alkaline Phosphatase 56 U/L N 34-104 Alt 18 U/L N 7-52 Ast 20 U/L N 13-39 Egfr Non- 88.0 >60 Egfr 113.2 >60 17 Laboratory test 06/14/2017 [facility] TSH (Thyroid 2.25 mcIU/mL N 0.34-5.[address] Stim Horm) [place] [address] [phone] Basic Metabolic 01/09/2017 [facility] Sodium 140 mmol/L N 133- 145 Panel [address] [place] [address] [phone] Potassium 4.0 mmol/L N 3.5-5.0 Chloride 104 mmol/L N 101-111 Co2 Carbon Dioxide 30 mmol/L N 22-32 Anion Gap 6 mmol/L N 2-11 Glucose 92 mg/dL N 70-100 Blood Urea Nitrogen 15 mg/dL N 6-24 Creatinine 0.66 mg/dL N 0.51-0.95 BUN/Creatinine Ratio 22.7 High 8-20 Calcium 9.5 mg/dL N 8.6-10.3 Egfr Non- 92.6 N >60 Egfr 119.1 N >60 18 Laboratory test 11/26/2016 [facility] Cytology SEE RESULT BELOW [address] [place] [address] [phone] HPV Rna Ww/Reflex Genotype Negative N Negative 20 Comp Metabolic Panel 11/21/2016 [facility] Sodium 136 mmol/L N 133-[address] [place] [address] [phone] Potassium 3.3 mmol/L Low 3.5-5.0 Chloride 100 mmol/L Low 101-111 Co2 Carbon Dioxide 28 mmol/L N 22-32 Anion Gap 8 mmol/L N 2-11 Glucose 87 mg/dL N 70-100 Blood Urea Nitrogen 12 mg/dL N 6-24 Creatinine 0.66 mg/dL N 0.51-0.95 BUN/Creatinine Ratio 18.2 N 8-20 Calcium 9.1 mg/dL N 8.6-10.3 Total Protein 6.6 g/dL N 6.4-8.9 Albumin 3.9 g/dL N 3.2-5.2 Globulin 2.7 g/dL N 2-4 Albumin/Globulin Ratio 1.4 N 1-3 Total Bilirubin 0.70 mg/dL N 0.2-1.0 Alkaline Phosphatase 54 U/L N 34-104 Alt 19 U/L N 7-52 Ast 22 U/L N 13-39 Egfr Non- 93.0 N >60 Egfr 119.6 N >60 21 CBC Auto Diff 11/21/2016 [facility] White Blood 7.4 10^3/uL N 3.5-10.[address] [place] [address] [phone] Red Blood Count 4.45 10^6/uL N 4.0-5.4 Hemoglobin 13.6 g/dL N 12.0-16.0 Hematocrit 39 % N 35-47 Mean Corpuscular Volume 88 fL N 80-97 Mean Corpuscular Hemoglobin 31 pg N 27-31 Mean Corpuscular HGB Conc 35 g/dL N 31-36 Red Cell Distribution Width 14 % N 10.5-15 Platelet Count 306 10^3/uL N 150-450 Mean Platelet Volume 9 um3 N 7.4-10.4 Abs Neutrophils 4.6 10^3/uL N 1.5-7.7 Abs Lymphocytes 1.8 10^3/uL N 1.0-4.8 Abs Monocytes 0.7 10^3/uL N 0-0.8 Abs Eosinophils 0.2 10^3/uL N 0-0.6 Abs Basophils 0.1 10^3/uL N 0-0.2 Abs Nucleated RBC 0 10^3/uL N Granulocyte % 61.6 % N 38-83 Lymphocyte % 25.0 % N 25-47 Monocyte % 9.9 % High 1-9 Eosinophil % 2.3 % N 0-6 Basophil % 1.2 % N 0-2 Nucleated Red Blood Cells % 0 N Lipid Profile 11/21/2016 [facility] Triglycerides 132 mg/dL N 22 (Trig/Chol/HDL) [address] [place] [address] [phone] Cholesterol 128 mg/dL N 23 HDL Cholesterol 33.2 mg/dL N 24 LDL Cholesterol 68 mg/dL N 25 Laboratory test 03/28/2016 [facility] Vitamin D Total 36.3 ng/ mL N 30-[address] 25(Oh) [place] [address] [phone] Lipid Profile 03/28/2016 [facility] Triglycerides 132 mg/dL N 27 (Trig/Chol/HDL) [address] [place] [address] [phone] Cholesterol 121 mg/dL N 28 HDL Cholesterol 32.6 mg/dL N 29 LDL Cholesterol 62 mg/dL N 30 Comp Metabolic Panel 03/28/2016 [facility] Sodium 138 mmol/L N 133-[address] [place] [address] [phone] Potassium 3.8 mmol/L N 3.5-5.0 Chloride 103 mmol/L N 101-111 Co2 Carbon Dioxide 30 mmol/L N 22-32 Anion Gap 5 mmol/L N 2-11 Glucose 103 mg/dL High 70-100 Blood Urea Nitrogen 13 mg/dL N 6-24 Creatinine 0.79 mg/dL N 0.51-0.95 BUN/Creatinine Ratio 16.5 N 8-20 Calcium 9.8 mg/dL N 8.6-10.3 Total Protein 6.7 g/dL N 6.4-8.9 Albumin 4.1 g/dL N 3.2-5.2 Globulin 2.6 g/dL N 2-4 Albumin/Globulin Ratio 1.6 N 1-3 Total Bilirubin 0.60 mg/dL N 0.2-1.0 Alkaline Phosphatase 61 U/L N 34-104 Alt 21 U/L N 7-52 Ast 21 U/L N 13-39 Egfr Non- 75.6 N >60 Egfr 97.2 N >60 31 CBC Auto Diff 01/10/2015 White Blood Count 9.7 10^3/uL N 4.8-10.8 Red Blood Count 4.58 10^6/uL N 4.0-5.4 Hemoglobin 14.2 g/dL N 12.0-16.0 Hematocrit 42 % N 35-47 Mean Corpuscular Volume 91 fL N 80-97 Mean Corpuscular Hemoglobin 31 pg N 27-31 Mean Corpuscular HGB Conc 34 g/dL N 31-36 Red Cell Distribution Width 14 % N 10.5-15 Platelet Count 353 10^3/uL N 150-450 Mean Platelet Volume 8 um3 N 7.4-10.4 Abs Neutrophils 5.4 10^3/uL N 1.5-7.7 Abs Lymphocytes 3.0 10^3/uL N 1.0-4.8 Abs Monocytes 0.9 10^3/uL High 0-0.8 Abs Eosinophils 0.2 10^3/uL N 0-0.6 Abs Basophils 0.1 10^3/uL N 0-0.2 Abs Nucleated RBC 0 10^3/uL N Granulocyte % 55.8 % N 38-83 Lymphocyte % 31.2 % N 25-47 Monocyte % 9.5 % High 1-9 Eosinophil % 2.4 % N 0-6 Basophil % 1.1 % N 0-2 Nucleated Red Blood Cells % 0 N Laboratory test finding 01/10/2015 C Reactive Protein 4.70 mg/L N < 5.00 32 Erythrocyte Sed Rate 29 mm/Hr N 0-30 Comp Metabolic Panel 01/04/2015 [facility] Sodium 137 mmol/L N 133-[address] [place] [address] [phone] Potassium 3.7 mmol/L N 3.5-5.0 Chloride 99 mmol/L Low 101-111 Co2 Carbon Dioxide 28 mmol/L N 22-32 Anion Gap 10 mmol/L N 2-11 Glucose 100 mg/dL N 70-100 Blood Urea Nitrogen 13 mg/dL N 6-24 Creatinine 0.70 mg/dL N 0.51-0.95 BUN/Creatinine Ratio 18.6 N 8-20 Calcium 9.6 mg/dL N 8.6-10.3 Total Protein 6.9 g/dL N 6.4-8.9 Albumin 4.1 g/dL N 3.2-5.2 Globulin 2.8 g/dL N 2-4 Albumin/Globulin Ratio 1.5 N 1-3 Total Bilirubin 0.70 mg/dL N 0.2-1.0 Alkaline Phosphatase 67 U/L N 34-104 Alt 23 U/L N 7-52 Ast 24 U/L N 13-39 Egfr Non- 87.2 N >60 Egfr 112.1 N >60 33 Lipid Profile 01/04/2015 [facility] Triglycerides 198 mg/dL N 34 (Trig/Chol/HDL) [address] [place] [address] [phone] Cholesterol 155 mg/dL N 35 HDL Cholesterol 31.4 mg/dL N 36 LDL Cholesterol 84 mg/dL N 37 Laboratory 01/04/2015 [facility] Vitamin D 32.4 ng/mL N 30-[address] Total 25(Oh) [place] [address] [phone] Laboratory 05/21/2014 [facility] Hepatitis C Nonreactive N Nonreactive test finding [address] [place] [address] [phone] Vitamin D 1,25-Dihydroxy 41 pg/mL N 18-78 38 Vitamin D, 25 05/21/2014 [facility] 25-Hydroxy Vitamin 20 ng/mL N Hydroxy [address] [place] [address] [phone] 25-Hydroxy Vitamin D3 7.0 ng/mL N 25-Hydroxy Vitamin D Total 27 ng/mL N 39 Laboratory test 02/26/2014 [facility] Cytology RUN DATE: [address] 02/27/ <[place] [address] NOTE> [phone] Comp Metabolic 02/20/2014 [facility] Sodium 137 mmol/L N 133- 145 [address] [place] [address] [phone] Potassium 3.7 mmol/L N 3.7-5.6 Chloride 101 mmol/L N 101-111 Co2 Carbon Dioxide 30 mmol/L N 22-32 Anion Gap 6 mmol/L N 2-11 Glucose 86 mg/dL N 70-100 Blood Urea Nitrogen 11 mg/dL N 6-24 Creatinine 0.73 mg/dL N 0.51-0.95 BUN/Creatinine Ratio 15.1 N 8-20 Calcium 9.6 mg/dL N 8.6-10.3 Total Protein 6.7 g/dL N 6.4-8.9 Albumin 4.3 g/dL N 3.2-5.2 Globulin 2.4 g/dL N 2-4 Albumin/Globulin Ratio 1.8 N 1-3 Total Bilirubin 0.70 mg/dL N 0.2-1.0 Alkaline Phosphatase 68 U/L N 34-104 Alt 28 U/L N 7-52 Ast 26 U/L N 13-39 Egfr Non- 83.4 N >60 Egfr 107.2 N >60 42 Lipid Profile 02/20/2014 [facility] Triglycerides 146 mg/dL N 43 (Trig/Chol/HDL) [address] [place] [address] [phone] Cholesterol 156 mg/dL N 44 HDL Cholesterol 35.6 mg/dL N 45 LDL Cholesterol 91 mg/dL N 46 Vitamin D, 25 02/20/2014 [facility] 25-Hydroxy Vitamin <4.0 ng/ mL N Hydroxy [address] [place] [address] [phone] 25-Hydroxy Vitamin D3 18 ng/mL N 25-Hydroxy Vitamin D Total 18 ng/mL Abnormal 47 Wound Culture/Sensi 08/04/2013 [facility] Wound/Misc (SEE NOTE) [address] [place] [address] Stain [phone] Herpes Simplex PCR 08/04/2013 [facility] Herpes Source BLISTER N [address] [address] <SEE NOTE> [phone] HSV 1 PCR Negative N Negative 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 50 Laboratory test finding 05/11/2013 [facility] LDH 152 U/L 95- [address] [place] [address] [phone] Beta HCG Quantitative < 2.1 MIU/ML 0.0-5.0 51 CA 125 Antigen 8.7 U/mL 2.0-35.0 52 Afp Tumor Marker 2.9 ng/mL 53 Inhibin A 6.7 pg/mL 54 CBC With 02/22/2013 [facility] White Blood 10.8 10^3/uL 4.8- 10.8 Manual Diff [address] [place] [address] [phone] Red Blood Count 4.58 10^6/uL 4.0-5.4 Hemoglobin 14.4 g/dL 12.0-16.0 Hematocrit 41 % 35-47 Mean Corpuscular Volume 90 fL 80-97 Mean Corpuscular Hemoglobin 31 pg 27-31 Mean Corpuscular HGB Conc 35 g/dL 31-36 Red Cell Distribution Width 14 % 10.5-15 Platelet Count 361 10^3/uL 150-450 Mean Platelet Volume 8 um3 7.4-10.4 Abs Neutrophils 6.4 10^3/uL 1.5-7.7 Abs Lymphocytes 3.2 10^3/uL 1.0-4.8 Abs Monocytes 0.9 10^3/uL High 0-0.8 Abs Eosinophils 0.2 10^3/uL 0-0.6 Abs Basophils 0.1 10^3/uL 0-0.2 Abs Nucleated RBC 0.02 10^3/uL Neutrophil % 62 % 38-83 Lymphocytes % 34 % 25-47 Monocytes % 4 % 0-13 RBC Morphology Normal Normal Laboratory test 07/13/2012 [facility] Rapid Strep A negative finding Laboratory test 04/29/2012 [facility] Rapid Influenza A (SEE NOTE) [address] [place] [address] [phone] Ua Routine 04/05/2012 [facility] Ua Specific 1.000 [address]ing Ua PH 5 Ua Color yellow Ua Appera clear Ua WBC neg Ua Protein neg Ua Glucose neg Ua Ketones neg Ua Bilirubin neg Ua Urobilinogen neg Ua Nitrite neg Ua Occult Blood neg Comp Metabolic Panel 04/05/2012 [facility] Sodium 137 mmol/L 133-[address] [place] [address] [phone] Potassium 4.8 mmol/L 3.5-5.0 Chloride 102 mmol/L 101-111 Co2 Carbon Dioxide 27.0 mmol/L 22-32 Anion Gap 8.0 mmol/L 2-11 Glucose 101 mg/dL High 70-100 Blood Urea Nitrogen 12 mg/dL 6-24 Creatinine 0.90 mg/dL 0.50-1.40 BUN/Creatinine Ratio 13.3 8-20 Calcium 9.5 mg/dL 8.1-9.9 Total Protein 6.5 g/dL 6.2-8.1 Albumin 4.1 g/dL 3.6-5.4 Globulin 2.4 g/dL 2-4 Albumin/Globulin Ratio 1.7 1-3 Total Bilirubin 0.7 mg/dL 0.4-1.5 Alkaline Phosphatase 66 U/L 30-110 Alt 33 U/L 14-54 Ast 29 U/L 12-42 Egfr Non- 66.0 >60 Egfr 84.9 >60 56 Laboratory 04/05/2012 [facility] TSH (Thyroid 2.07 0.34-5.60 57 test finding Stimulating Horm) MIU/[place] [address] [phone] Lipid Profile 04/05/2012 [facility] Triglycerides 146 mg/dL 40-200 (Trig/Chol/HDL 101 ) [place] [address] [phone] Cholesterol 159 mg/dL Less than 200 HDL Cholesterol 36 mg/dL Low 40-60 58 Cholesterol/HDL Ratio 4.4 Average 1-4.44 LDL Cholesterol 93.8 mg/dL Less Than 100 59 Wound Culture/Sensi 03/23/2012 [facility] Wound/Misc (SEE NOTE) 60 101 [place] [address] [phone] Clotest 12/21/2011 [facility] [address] ------ [place] [address] <SEE NOTE> [phone] Laboratory test 03/24/2011 [facility] Surgical Pathology ------- --- 62 finding [facility] [employer] [facility] ------ [place] [address] <SEE NOTE> [phone] Laboratory test 03/10/2011 [facility] Cytology 63 finding [facility] [employer] [facility] ------ [place] [address] <SEE NOTE> [phone] Results suggest response to immunization or prior exposure to the virus. REFERENCE VALUE Vaccinated: Positive (>=1.1 AI) Unvaccinated: Negative (<=0.8 AI) 2 Test Performed by: [facility] [place] [address] 3 Results suggest response to immunization or prior exposure to the virus. REFERENCE VALUE Vaccinated: Positive (>=1.1 AI) Unvaccinated: Negative (<=0.8 AI) 4 Test Performed by: [facility] [place] [address] 5 Results suggest response to immunization or prior exposure to the virus. REFERENCE VALUE Vaccinated: Positive (>=1.1 AI) Unvaccinated: Negative (<=0.8 AI) 6 Test Performed by: [facility] [employer] , [place] [address] 7 SEE RESULT BELOW Name: MARCO RODRIGUEZ : [address]: Amaris Gorman NP Acct: [id number] Unit: [id number] AGE: 57 Location: [facility] Re03/21/18 SEX: F Status: REG REF SPEC: [id number] MICHELLE: 03/21/181357 [facility] DR: Amaris Gorman NP REQ: [id number] RECD: 03/21/18 STATUS: COMP _ SOURCE: URINE SPDESC: ORDERED: Urine Culture COMMENTS: [id number] Urine Source: Random Procedure Result Reported Site Urine Culture Final 03/23/18- 0824 ML No Growth (<1,000 CFU/mL) * - Main Lab . END OF REPORT DEPARTMENT OF PATHOLOGY, [address] [place] [address] Eleazar Drake M.D. Director [facility] # [id number] 8 Therapeutic target for the treatment of diabetes mellitus patients is <7% HBA1C, and in selective patients <6.0%. Please refer to [place] [employer] diabetic care guidelines for further information. 9 SEE RESULT BELOW Name: MARCO RODRIGUEZ : [address]: Amaris Gorman NP Acct: [id number] Unit: [id number] AGE: 57 Location: [facility] Re12/06/17 SEX: F Status: REG REF SPEC: [id number] MICHELLE: 12/06/[address]: Amaris Gorman NP REQ: [id number] RECD: 12/06/17 STATUS: COMP _ SOURCE: URINE SPDESC: ORDERED: Urine Culture COMMENTS: [id number] Urine Source: Random Procedure Result Reported Site Urine Culture Final 12/07/17- 1722 ML No Growth (<1,000 CFU/mL) * ML - Main Lab . END OF REPORT DEPARTMENT OF PATHOLOGY, [address] [place] [address] Eleazar Drake M.D. Director [facility] # [id number] 10 Because ethnic data is not always readily available, this report includes an eGFR for both -Americans and non- Americans. The National Kidney Disease Education Program (NKDEP) does not endorse the use of the MDRD equation for patients that are not between the ages of 18 and 70, are , have extremes of body size, muscle mass, or nutritional status, or are non- or non-. According to the National Kidney Foundation, irrespective of diagnosis, the stage of the disease is based on the level of kidney function: Stage Description GFR(mL/min/1.73 m(2)) 1 Kidney damage with normal or decreased GFR 90 2 Kidney damage with mild decrease in GFR 60-89 3 Moderate decrease in GFR 30-59 4 Severe decrease in GFR 15-29 5 Kidney failure <15 (or dialysis) 11 Desirable: <150 Borderline High: 150-199 High: 200-499 Very High: >500 12 Desirable: <200 Borderline High: 200-239 High: >239 13 Low: <40 Desirable: 40-60 High: >60 14 Desirable: <100 Near Optimal: 100-129 Borderline High: 130-159 High: 160-189 Very High: >189 15 [employer]: [id number] SEE RESULT BELOW Name: MARCO RODRIGUEZ : [address]: Amaris Gorman NP Acct: [id number] Unit: [id number] AGE: 56 Location: [facility] Re09/06/17 SEX: F Status: REG REF SPEC: [id number] MICHELLE: 09/06/17-[address]: Amaris Gorman NP REQ: [id number] RECD: 09/06/17 STATUS: COMP _ SOURCE: BIANCA SOTOES: ORDERED: Zhao Hudson Request COMMENTS: [id number] Procedure Result Reported Site Rapid Influenza A B Request Final 09/06/17- 1902 ML Specimen received for Influenza A/B Molecular testing * ML - Main Lab . END OF REPORT DEPARTMENT OF PATHOLOGY, [address] [place] [address] Eleazar Drake M.D. Director [facility] # [id number] 17 Because ethnic data is not always readily available, this report includes an eGFR for both -Americans and non- Americans. The National Kidney Disease Education Program (NKDEP) does not endorse the use of the MDRD equation for patients that are not between the ages of 18 and 70, are , have extremes of body size, muscle mass, or nutritional status, or are non- or non-. According to the National Kidney Foundation, irrespective of diagnosis, the stage of the disease is based on the level of kidney function: Stage Description GFR(mL/min/1.73 m(2)) 1 Kidney damage with normal or decreased GFR 90 2 Kidney damage with mild decrease in GFR 60-89 3 Moderate decrease in GFR 30-59 4 Severe decrease in GFR 15-29 5 Kidney failure <15 (or dialysis) 18 Because ethnic data is not always readily available, this report includes an eGFR for both -Americans and non- Americans. The National Kidney Disease Education Program (NKDEP) does not endorse the use of the MDRD equation for patients that are not between the ages of 18 and 70, are , have extremes of body size, muscle mass, or nutritional status, or are non- or non-. According to the National Kidney Foundation, irrespective of diagnosis, the stage of the disease is based on the level of kidney function: Stage Description GFR(mL/min/1.73 m(2)) 1 Kidney damage with normal or decreased GFR 90 2 Kidney damage with mild decrease in GFR 60-89 3 Moderate decrease in GFR 30-59 4 Severe decrease in GFR 15-29 5 Kidney failure <15 (or dialysis) 19 SEE RESULT BELOW Name: MARCO RODRIGUEZ Liz : [address]: Amaris Gorman NP Acct: [id number] Unit: [id number] AGE: 56 Location: [facility] Re11/26/16 SEX: F Status: REG REF SPEC: [id number] MICHELLE: 11/26/16-[address]: Amaris Gorman NP REQ: [id number] RECD: 11/26/16 STATUS: SOUT _ ORDERED: TP IMAGE ANAL, HPV/Thin Prep, HPV 16/18 GENE COMMENTS: [id number] FINAL DIAGNOSIS Negative for Intraepithelial lesion or Malignancy A. Ectocervical/Endocervical Specimen Adequacy: Satisfactory of evaluation Transformation zone component identified Patient Information: HPV: High risk HPV RNA testing regardless of pap results. HPV 16/18 Genotype Reflex Actual Specimen Date: 11/26/16 LMP If Unknown: age53 Spec Date if unknown: 2013 ?: N Post Menopausal?: Y Hysterectomy?: N Previous Abnormal Pap Smears?:N Date Time Test Result Flag (u) Normal Range 11/26/16 1257 HPV RNA RFLX GE Negative Negative The high-risk HPV types detected by the assay include: 16, 18, 31, 33, 35, 39, 45, 51, 52, 56, 58, 59, 66, and 68. Signed (signature on file) KARIE Allan (ASCP) 11/27 1405 This Pap test was evaluated with the assistance of the [employer] Test Imaging System. Due to cytologic findings at the ophthalmic medical technician microscope, comprehensive manual rescreening by a Physical Science Professor may be required. The Pap Smear is a screening test designed to aid in the detection of premalignant and malignant conditions of the uterine cervix. It is not a diagnostic procedure and should not be used as the sole means of detecting cervical cancer. Both false- positive and false- negative reports do occur. Depending on your risk status, a Pap smear should be obtained and evaluated every 1-3 years. END OF REPORT * ML=Testing performed at Main Lab DEPARTMENT OF PATHOLOGY, [address] [place] [address] RUN DATE: 11/27/16 [facility] LAB LIVE PAGE 1 Patient: MARCO RODRIGUEZ [id number] (Continued) Eleazar Drake M.D. Director [facility] # [id number] 20 The high-risk HPV types detected by the assay include: 16, 18, 31, 33, 35, 39, 45, 51, 52, 56, 58, 59, 66, and 68. 21 Because ethnic data is not always readily available, this report includes an eGFR for both -Americans and non- Americans. The National Kidney Disease Education Program (NKDEP) does not endorse the use of the MDRD equation for patients that are not between the ages of 18 and 70, are , have extremes of body size, muscle mass, or nutritional status, or are non- or non-. According to the National Kidney Foundation, irrespective of diagnosis, the stage of the disease is based on the level of kidney function: Stage Description GFR(mL/min/1.73 m(2)) 1 Kidney damage with normal or decreased GFR 90 2 Kidney damage with mild decrease in GFR 60-89 3 Moderate decrease in GFR 30-59 4 Severe decrease in GFR 15-29 5 Kidney failure <15 (or dialysis) 22 Desirable <150 Borderline high 150-199 High 200-499 Very High >500 23 Desirable <200 Borderline high 200-239 High >239 24 Low <40 Desirable: 40-60 High: >60 25 Desirable: <100 mg/dL Near Optimal: 100-129 mg/dL Borderline High: 130-159 mg/dL High: 160-189 mg/dL Very High: >189 mg/dL 26 FASTING 10 HOUR 27 Desirable <150 Borderline high 150-199 High 200-499 Very High >500 28 Desirable <200 Borderline high 200-239 High >239 29 Low <40 Desirable: 40-60 High: >60 30 Desirable: <100 mg/dL Near Optimal: 100-129 mg/dL Borderline High: 130-159 mg/dL High: 160-189 mg/dL Very High: >189 mg/dL 31 Because ethnic data is not always readily available, this report includes an eGFR for both -Americans and non- Americans. The National Kidney Disease Education Program (NKDEP) does not endorse the use of the MDRD equation for patients that are not between the ages of 18 and 70, are , have extremes of body size, muscle mass, or nutritional status, or are non- or non-. According to the National Kidney Foundation, irrespective of diagnosis, the stage of the disease is based on the level of kidney function: Stage Description GFR(mL/min/1.73 m(2)) 1 Kidney damage with normal or decreased GFR 90 2 Kidney damage with mild decrease in GFR 60-89 3 Moderate decrease in GFR 30-59 4 Severe decrease in GFR 15-29 5 Kidney failure <15 (or dialysis) 32 Acute inflammation: >10.00 33 Because ethnic data is not always readily available, this report includes an eGFR for both -Americans and non- Americans. The National Kidney Disease Education Program (NKDEP) does not endorse the use of the MDRD equation for patients that are not between the ages of 18 and 70, are , have extremes of body size, muscle mass, or nutritional status, or are non- or non-. According to the National Kidney Foundation, irrespective of diagnosis, the stage of the disease is based on the level of kidney function: Stage Description GFR(mL/min/1.73 m(2)) 1 Kidney damage with normal or decreased GFR 90 2 Kidney damage with mild decrease in GFR 60-89 3 Moderate decrease in GFR 30-59 4 Severe decrease in GFR 15-29 5 Kidney failure <15 (or dialysis) 34 Desirable <150 Borderline high 150-199 High 200-499 Very High >500 35 Desirable <200 Borderline high 200-239 High >239 36 Low <40 Desirable: 40-60 High: >60 37 Desirable: <100 mg/dL Near Optimal: 100-129 mg/dL Borderline High: 130-159 mg/dL High: 160-189 mg/dL Very High: >189 mg/dL 38 Test Performed by: [facility] [place] [address] Contact Lens Manufacturer: Navi Palma M.D. 39 REFERENCE VALUE 25-HYDROXY D TOTAL (D2+D3) Optimum levels in the healthy population are 20-50, patients with bone disease may benefit from higher levels within this range. Test Performed by: [place] [address] Contact Lens Manufacturer: Navi Palma M.D. 40 RUN DATE: 02/27/14 [facility] LAB LIVE PAGE 1 RUN TIME: [address] [place] [address] Specimen Inquiry Name: MARCO RODRIGUEZ : [address]: Amaris Gorman NP Acct: [id number] Unit: [id number] AGE: 53 Location: [facility] Re02/26/14 SEX: F Status: REG REF SPEC: [id number] MICHELLE: 02/26/14-1323 [facility] DR: Amaris Gorman NP REQ: [id number] RECD: 02/26/14 STATUS: SOUT _ ORDERED: IMAGE ANALYSIS FINAL DIAGNOSIS Negative for Intraepithelial lesion or Malignancy A. Ectocervical/Endocervical Specimen Adequacy: Satisfactory of evaluation Transformation zone component identified Patient Information: HPV: Thin Layer Pap Test w/reflex to high risk HPV DNA testing when ASCUS Actual Specimen Date: 02/26/14 Last Menstrual Date: 05/14/13 ?: N Post Menopausal?: N Hysterectomy?: N Previous Abnormal Pap Smears?:N Signed (signature on file) KAIRE Allan (ASCP) 02/27 1247 This Pap test was evaluated with the assistance of the [employer] Test Imaging System. Due to cytologic findings at the ophthalmic medical technician microscope, comprehensive manual rescreening by a Physical Science Professor may be required. The Pap Smear is a screening test designed to aid in the detection of premalignant and malignant conditions of the uterine cervix. It is not a diagnostic procedure and should not be used as the sole means of detecting cervical cancer. Both false- positive and false- negative reports do occur. Depending on your risk status, a Pap smear shoudl be obtained and evaluated every 1-3 years. END OF REPORT * ML=Testing performed at Main Lab DEPARTMENT OF PATHOLOGY, [address] [place] [address] Eleazar Drake M.D. Director [facility] # [id number] 41 PT IS FASTING 42 Because ethnic data is not always readily available, this report includes an eGFR for both -Americans and non- Americans. The National Kidney Disease Education Program (NKDEP) does not endorse the use of the MDRD equation for patients that are not between the ages of 18 and 70, are , have extremes of body size, muscle mass, or nutritional status, or are non- or non-. According to the National Kidney Foundation, irrespective of diagnosis, the stage of the disease is based on the level of kidney function: Stage Description GFR(mL/min/1.73 m(2)) 1 Kidney damage with normal or decreased GFR 90 2 Kidney damage with mild decrease in GFR 60-89 3 Moderate decrease in GFR 30-59 4 Severe decrease in GFR 15-29 5 Kidney failure <15 (or dialysis) 43 Desirable <150 Borderline high 150-199 High 200-499 Very High >500 44 Desirable <200 Borderline high 200-239 High >239 45 Low <40 Desirable: 40-60 High: >60 46 Desirable <100 Near Optimal 100-129 Borderline high 130-159 High 160-189 Very High >189 47 Interpretation: 10-19 ng/mL (mild to moderate deficiency) REFERENCE VALUE 25-HYDROXY D TOTAL (D2+D3) Optimum levels in the healthy population are 20-50, patients with bone disease may benefit from higher levels within this range. Test Performed by: [facility] - [address] [address] Contact Lens Manufacturer: Navi Palma M.D. 48 RUN DATE: 08/06/13 [facility] LAB LIVE PAGE 1 RUN TIME: 1158 [address] [place], [place] [address] Specimen Inquiry Name: PETERMARCO P : [address]: Amaris Gorman NP Acct: [id number] Unit: [id number] AGE: 52 Location: [facility] Re08/04/13 SEX: F Status: REG REF SPEC: [id number] MICHELLE: 08/04/13-1245 [facility] DR: Amaris Gorman NP REQ: [id number] RECD: 08/04/13-1540 STATUS: COMP _ SOURCE: HAND,RIGHT SPDESC: ORDERED: Culture Stain QUERIES: [employer] Number [id number] Specimen Description BLISTER Procedure Result Verified Site Wound/Misc Gram Stain Final 08/04/13- 1819 ML 2+ Epithelial Cells 1+ Nucleated Cells No Organisms Seen Wound/Misc Culture Final 08/06/13- 1158 ML No Growth Day 2 END OF REPORT * ML=Testing performed at [facility] DEPARTMENT OF PATHOLOGY, [address] [place] [address] Eleazar Drake M.D. Director [facility] Permit #[id number] 49 BLISTER RIGHT HAND 50 Analyte Specific Reagent: This test was developed and its performance characteristics determined by [facility]. It has not been cleared or approved by the U.S. Food and Drug Administration. Test Performed by: [facility] [address] [address] Contact Lens Manufacturer: Sergio Villagran III, M.D. 51 Males: < 5.0 miu/ml Non females < 5.0 miu/ml Approx gestational age approx HCG range 0-1 week < 5.0-50 1-2 weeks 50-500 2-3 weeks 100-5000 3-4 weeks 500-10,000 1-2 months 10,000-200,000 2-3 months 15,000-100,000 Please note: The intended use of this assay is the quantitative determination of HCG in human serum or plasma for the early detection of . These assays should not be used to diagnose any condition unrelated to . If an HCG level is inconsistent with, or unsupported by, clinical evidence, results should be confirmed by an alternate HCG method. 52 The CA 125 assay is not recommended as a cancer screening test, but rather as an aid in monitoring response to therapy for patients with epithelial ovarian cancer. Serial testing for patients CA 125 assay values should be used in conjunction with other methods used for screening ovarian cancer. Assayed by Chemiluminescence Microparticle Immunoassay on the [employer] Access[employer]. The values obtained with different assay methods or kits cannot be used interchangeably. 53 -- REFERENCE VALUE -- <6.0 Reference values are for non- subjects only; production of AFP elevates values in women. The testing method is an immunoenzymatic assay manufactured by [employer] and performed on the [employer] DxI 800. Values obtained with different assay methods or kits may be different and cannot be used interchangeably. Test results cannot be interpreted as absolute evidence for the presence or absence of malignant disease. Alpha-Fetoprotein values are not interpretable in females for the investigation of malignant disease. Test Performed by: [facility] - [address] [address] Contact Lens Manufacturer: Sergio Villagran III, M.D. 54 -- REFERENCE VALUE -- <97.5 (Premenopausal) <2.1 (Postmenopausal) The testing method is an immunoenzymatic assay manufactured by [employer] and performed on the [employer] DxI 800. Values obtained with different assay methods or kits may be different and cannot be used interchangeably. Test results cannot be interpreted as absolute evidence for the presence or absence of malignant disease. Inhibin A values are not interpretable in females for the investigation of malignant disease. Test Performed by: [facility] [address] [address] Contact Lens Manufacturer: Sergio Villagran III, M.D. 55 RUN DATE: 04/29/12 [facility] LAB LIVE PAGE 1 RUN TIME: [address] [place] [address] Specimen Inquiry Name: MARCO RODRIGUEZ : [address]: Amaris Gorman Acct: [id number] Unit: [id number] AGE: 51 Location: [facility] Re04/29/12 SEX: F Status: REG REF SPEC: [id number] MICHELLE: 04/29/121148 [facility] DR: Amaris Gorman REQ: [id number] RECD: 04/29/12 STATUS: COMP _ SOURCE: BIANCA [facility]: ORDERED: Rapid Flu A B QUERIES: [employer] Number [id number] Procedure Result Verified Site Rapid Influenza A B Antigen Final 04/29/12- 2113 ML Influenza A Antigen Negative by Enzyme Immunoassay Influenza B Antigen Negative by Enzyme Immunoassay Cell culture testing can be performed to confirm negative test results and to assist in detecting other viruses that can produce similar clinical symptoms. Please notify Microbiology Lab if further testing is desired. END OF REPORT * ML=Testing performed at Main Lab DEPARTMENT OF PATHOLOGY, [facility] [employer] [place], [place] [address] Eleazar Drake M.D. Director [facility] Permit #[id number] 56 Because ethnic data is not always readily available, this report includes an eGFR for both -Americans and non- Americans. The National Kidney Disease Education Program (NKDEP) does not endorse the use of the MDRD equation for patients that are not between the ages of 18 and 70, are , have extremes of body size, muscle mass, or nutritional status, or are non- or non-. According to the National Kidney Foundation, irrespective of diagnosis, the stage of the disease is based on the level of kidney function: Stage Description GFR(mL/min/1.73 m(2)) 1 Kidney damage with normal or decreased GFR 90 2 Kidney damage with mild decrease in GFR 60-89 3 Moderate decrease in GFR 30-59 4 Severe decrease in GFR 15-29 5 Kidney failure <15 (or dialysis) 57 FASTING 12 HOUR Please get this done soon 58 HDL Interpretation: Undesirable: High Risk: Less than 40 MG/DL Desirable: Low Risk: Greater than 60 MG/DL 59 LDL Interpretation: Low Risk Optimal Level: LDL Less than 100 MG/DL Near or Above Optimal: LDL 100-129 MG/DL Borderline High Risk: LDL 130-159 MG/DL High Risk: LDL 160-189 MG/DL Very High Risk: LDL Greater than 189 MG/DL 60 RUN DATE: 03/25/12 [facility] LAB LIVE PAGE 1 RUN TIME: 1004 [address] [facility] [facility] [place] [address] Specimen Inquiry Name: MARCO RODRIGUEZ Liz : [address]: Amaris Gorman Acct: [id number] Unit: [id number] AGE: 51 Location: [facility] Re03/23/12 SEX: F Status: REG REF SPEC: [id number] MICHELLE: 03/23/12-[address]: Amaris Gorman REQ: [id number] RECD: 03/23/12 STATUS: COMP _ SOURCE: WOUND SPDESC:RIGHT ORDERED: Culture Stain COMMENTS: AXILLARY ABCESS..RIGHT ARM QUERIES: [employer] Number [id number] Procedure Result Verified Site Wound/Misc Gram Stain Final 03/24/12- 0749 ML 4+ Polys 1+ Nucleated Cells 4+ Gram Positive Cocci in Clusters, resembling Staph Wound/Misc Culture Final 03/25/12- 1004 ML No Growth Day 2 END OF REPORT * ML=Testing performed at Main Lab DEPARTMENT OF PATHOLOGY, [address] [place] [address] Eleazar Drake M.D. Director [facility] Permit #[id number] 61 RUN DATE: 12/22/11 [facility] NMI LIVE PAGE 1 RUN TIME: 750 Specimen Inquiry RUN USER: INTERFACE Name: MARCO RODRIGUEZ Liz Status: REG REF Re12/21/11 Age/Sex: 51/F Unit#: [id number] Location: END : 60 SPEC #: [id number] MICHELLE: 12/21/11 STATUS: COMP REQ #: [id number] RECD: 12/21/11 [facility] DR: Jasson HORTON,Van Byers SOURCE: CLOTEST ENTR: 12/21/[address]: [facility] Lew [facility]: CLOTEST ACT WKST: MISC 12/22/11 #1 Procedure Result Verified Site > CLOTEST Final 12/22/11- 0751 ML CLOTEST NEGATIVE ML - [facility] Permit #[id number] [address] [place] [address] DEPARTMENT OF PATHOLOGY, [address] [place] [address] [facility] Permit #[id number] Jamia Soni M.D. Print Traffic Manager 62 ---- RUN DATE: 03/30/11 [facility] NMI LIVE PAGE 1 RUN TIME: 1428 Specimen Inquiry RUN USER: INTERFACE -- Name: MARCO RODRIGUEZ Status: REG REF Re03/24/11 Age/Sex: 50/F Unit#: [id number] Location: [facility] : 60 -- Specimen: [id number] SOUT Spec Date: 03/24/[address]: Amaris salomon [facility] Spec Type: SURGICAL P Received: 03/25/11-1147 Copies to: CYTOLOGY SPECIMEN ENDOMETRIAL BIOPSY HISTORY PRE-OP DIAGNOSIS: Menorrhage. GROSS DESCRIPTION The specimen is received in formalin labelled Marco Rodriguez, and consists of several fragments of brown tissue measuring in aggregate 1.7 x 1.2 x 0.3 cm. The specimen is filtered. Submitted entirely, one cassette. DIAGNOSIS Uterus, endometrial biopsy: A. Secretory endometrium, B. No evidence of hyperplasia or malignancy. C. Extensive tubal metaplasia. Signed Electronically by: KAREEM BRAVO 03/30/11 1427 -- -- DEPARTMENT OF PATHOLOGY, [address] [place] [address] [facility] Permit #[id number] Eleazar Drake M.D. Director Kareem Bravo M.D. Artificial Teeth Inspector Dir tawnya -- 63 ---- RUN DATE: 03/11/11 [facility] NMI LIVE PAGE 1 RUN TIME: 1435 Specimen Inquiry RUN USER: INTERFACE -- Name: MARCO RODRIGUEZ Status: REG REF Re03/10/11 Age/Sex: 50/F Unit#: [id number] Location: [facility] : 60 -- Specimen: [id number] SOUT Spec Date: 03/10/[address]: Amaris salomon [facility] Spec Type: CYTOLOGY Received: 03/11/11-1001 Copies to: SOURCE ECTOCERVICAL/ENDOCERVICAL Thin Prep with Reflex HPV Test PATIENT INFORMATION ACTUAL COLLECTION DATE: 03/10/11 ? No POST MENOPAUSAL? No HYSTERECTOMY? No PREVIOUS ABNORMAL PAP SMEARS No LAST MENSTRUAL PERIOD: 02/27/11 ADEQUACY OF SPECIMEN Satisfactory for evaluation * Transformation zone component identified * DIAGNOSIS NEGATIVE FOR INTRAEPITHELIAL LESION OR MALIGNANCY * This Pap test was evaluated with the assistance of the ParaShootPrep Pap Test Imaging System. The Pap Smear is a screening test designed to aid in the detection of premalign ant and malignant conditions of the uterine cervix. It is not a diagnostic procedure a nd should not be used as the sole means of detecting cervical cancer. Both false- positiv e and false-negative reports do occur. Depending on your risk status, a Pap smear shelley uld be obtained and evaluated every one to three years. Final Interpretation electronically signed by: Giancarlo LEES(ASC) 03/11/11 143 4 -- -- DEPARTMENT OF PATHOLOGY, [address] [place] [address] [facility] Permit #[id number] [phone] Eleazar Drake M.D. Director Kareem Bravo M.D. Artificial Teeth Inspector Dir tawnya -- Procedures Date Code Description Status 09/21/2018 85682 Destruction Of Lesions 15+ Completed 05/26/2018 60722 Inject Tendon Sheath Or Ligament Aponeurosis Eg Completed Plantar Fascia 03/01/2018 18346 Dest Lesion Each Addl Lesion 2 Through 14 Each Completed 03/01/2018 19843 Destruction ALL Benign Or Premalignant Lesion (Other Completed Than [place] 01/21/2018 69589 Dest Lesion Each Addl Lesion 2 Through 14 Each Completed 01/21/2018 75812 Destruction ALL Benign Or Premalignant Lesion (Other Completed Than [place] 11/12/2017 71322 Dest Lesion Each Addl Lesion 2 Through 14 Each Completed 11/12/2017 52863 Destruction ALL Benign Or Premalignant Lesion (Other Completed Than [place] 10/07/2017 [id number] Mammogram Completed 02/02/2017 05534 Stress Test Completed 01/28/2017 64842 ECHO Transthoracic, Real-Time 2D With Doppler And Completed Color Flow 01/28/2017 10160 ECHO Transthoracic, Real-Time 2D With Doppler And Completed Color Flow 01/19/2017 65861 EKG Tracing & Interpretation Completed 11/18/2016 151025050 Diabetic Retinal Eye Exam Completed 11/04/2016 93998 Dest Lesion Each Addl Lesion 2 Through 14 Each Completed 11/04/2016 83713 Destruction ALL Benign Or Premalignant Lesion (Other Completed Than [place] 11/18/2015 07479 Sleep Study Unattended,HRT Rate,Oxygen Sat,Resp Completed Effort/Airflow 11/11/2015 [id number] Mammogram Completed 04/09/2014 91182 EKG Tracing & Interpretation Completed 04/06/2014 69276 ECHO Transthorasic Realtime 2D W Doppler & Color Flow Completed Hosp 03/27/2014 42269 Stress Test Completed 02/26/2014 80298 EKG Tracing & Interpretation Completed 12/21/2011 18229964 Colonoscopy Completed 03/24/2011 58592 Endometrial Sampling W Or W/O Endocervical BX W Or W/O Completed Cerv Dilat 03/20/2011 71032695 Mammogram Completed 12/04/2005 52723 Selective Coronary Angioplasty Completed 12/04/2005 13570 Selective Coronary Angioplasty Completed 12/04/2005 40108 S/I/R Inj Proc Vent And Or Atrial Completed 12/04/2005 47080 Left Heart Catheterization Completed 12/04/2005 66550 Left Heart Catheterization Completed 12/04/2005 05937 Inj Proc LFT Vent/LFT Atrl Angio Completed 12/04/2005 99369 Coronary Angiography Completed 12/04/2005 77717 Coronary Angiography Completed 12/01/2005 40644 Color Doppler Completed 12/01/2005 42210 Pulse Doppler & Continuous Wave Completed 12/01/2005 65797 Pulse Doppler & Continuous Wave Completed 12/01/2005 23101 Echocardiogram Completed 11/26/2005 84304 ECHO/Stress Completed 11/26/2005 20259 ECHO/Stress Completed 11/26/2005 34425 Stress Test Completed Encounters Type Date Location Provider Dx Diagnosis Office Visit 09/21/2018 [facility] Dermatology Jacey Delarosa L24.9 Irritant contact 4:10p dermatitis, unspecified cause L57.0 Actinic keratosis Office Visit 08/19/2018 10:20a [facility] Internal Amaris Gorman, I10 Essential ( primary) Medicine - Ccmob N.P. hypertension J01.90 Acute sinusitis, unspecified Office Visit 05/26/2018 Orthopedic Monalisa M65.4 Radial styloid 9:45a Services Of [place], RPA-C tenosynovitis [de C.MDeejayADeejay Quervain] Office Visit 05/26/2018 [facility] Dermatology Jacey L24.9 Irritant contact 3:10p [place] dermatitis, unspecified cause L57.0 Actinic keratosis Office Visit 05/02/2018 10:40a [facility] Internal Amaris Gorman, M72.2 Plantar fascial Medicine - N.P. fibromatosis Ccmob M65.4 Radial styloid tenosynovitis [de Quervain] Office Visit 04/21/2018 10:20a [facility] Internal Amaris Gorman, H92.03 Otalgia, Medicine - Ccmob N.P. bilateral J34.81 Nasal mucositis (ulcerative) Office Visit 03/21/2018 10:40a [facility] Internal Amaris Gorman, N39.0 Urinary tract Medicine - Ccmob N.P. infection, site not specified J01.90 Acute sinusitis, unspecified Office Visit 03/01/2018 3:10p [facility] Dermatology Jacey Delarosa, L24.9 Irritant contact MD dermatitis, unspecified cause L85.3 Xerosis cutis L82.1 Other seborrheic keratosis L57.0 Actinic keratosis Office Visit 01/25/2018 2:20p [facility] Internal Amaris Gorman, Z00.00 Encntr for Medicine - Ccmob N.P. general adult medical exam w/o abnormal findings I10 Essential (primary) hypertension G47.33 Obstructive sleep apnea (adult) (pediatric) F41.9 Anxiety disorder, unspecified I47.2 Ventricular tachycardia E78.00 Pure hypercholesterolemia, unspecified Office Visit 01/21/2018 4:10p [facility] Dermatology Jacey Delarosa, L24.9 Irritant contact MD dermatitis, unspecified cause L57.0 Actinic keratosis Office Visit 01/12/2018 4:00p [facility] Internal Amaris Gorman, I10 Essential ( primary) Medicine - Ccmob N.P. hypertension R00.1 Bradycardia, unspecified Office Visit 01/04/2018 11:00a [facility] Internal Amaris Gorman, R21 Rash and other Medicine - Ccmob N.P. nonspecific skin eruption Office Visit 12/27/2017 1:40p [facility] Internal Amaris Gorman, I10 Essential ( primary) Medicine - Ccmob N.P. hypertension R00.1 Bradycardia, unspecified L30.4 Erythema intertrigo Office Visit 12/14/2017 11:40a Kent[place] Gorman, B37.3 Candidiasis of Medicine - N.P. vulva and vagina Ccmob Office Visit 12/06/2017 9:20a [place] Internal Amaris Gorman, N39.0 Urinary tract Medicine - N.P. infection, site Ccmob not specified J01.90 Acute sinusitis, unspecified L30.4 Erythema intertrigo R00.1 Bradycardia, unspecified R39.15 Urgency of urination M54.5 Low back pain Office Visit 11/15/2017 3:20p [facility] Internal Amaris Gorman, L98.9 Disorder of the Medicine - N.P. skin and Ccmob subcutaneous tissue, unspecified E78.00 Pure hypercholesterolemia, unspecified E55.9 Vitamin D deficiency, unspecified N77.1 Vaginitis, vulvitis and vulvovaginitis in dis classd elswhr F41.1 Generalized anxiety disorder H81.10 Benign paroxysmal vertigo, unspecified ear R00.1 Bradycardia, unspecified Office Visit 11/12/2017 8:50a [facility] Dermatology Larry Munizzer, L82.1 Other seborrheic MD keratosis L72.0 Epidermal cyst L57.0 Actinic keratosis Office Visit 10/20/2017 12:00p Pulmonology And Kimber G47.33 Obstructive sleep Sleep Services Of MD Juno apnea (adult) [facility] (pediatric) E66.09 Other obesity due to excess calories Office Visit 09/24/2017 2:40p [facility] Internal Avtar Riojas, B37.2 Candidiasis of skin Medicine - Ccmob UNIX CONSULTANT and nail R09.81 Nasal congestion Office Visit 09/06/2017 11:40a [facility] Internal Amaris Gorman, H66.93 Otitis media, Medicine - N.P. unspecified, Ccmob bilateral J20.9 Acute bronchitis, unspecified Office Visit 08/06/2017 11:40a [facility] Internal Avtar Riojas UNIX CONSULTANT B37.2 Candidiasis of skin Medicine - and nail Ccmob Office Visit 06/21/2017 8:40a [facility] Internal Amaris Gorman, I10 Essential ( primary) Medicine - N.P. hypertension Ccmob J01.90 Acute sinusitis, unspecified Z12.31 Encntr screen mammogram for malignant neoplasm of breast D23.9 Other benign neoplasm of skin, unspecified Office Visit 06/14/2017 11:40a [facility] Internal Avtar Riojas UNIX CONSULTANT R42 Dizziness and Medicine - Ccmob giddiness J01.90 Acute sinusitis, unspecified H02.401 Unspecified ptosis of right eyelid Office Visit 04/21/2017 Pulmonology And Ceci G47.33 Obstructive sleep 1:30p Sleep Services Of DOMO Valera, RN, apnea (adult) [facility] PRESCHOOL AIDE- (pediatric) E66.01 Morbid (severe) obesity due to excess calories Z68.42 Body mass index (BMI) 45.0-49.9, adult Z72.821 Inadequate sleep hygiene Office Visit 02/24/2017 4:00p [facility] Internal Amaris Gorman, I10 Essential ( primary) Medicine - Ccmob N.P. hypertension L98.9 Disorder of the skin and subcutaneous tissue, unspecified Office Visit 02/17/2017 2:00p [facility] Internal Amaris Gorman, I10 Essential ( primary) Medicine - Ccmob N.P. hypertension L98.9 Disorder of the skin and subcutaneous tissue, unspecified Office Visit 02/04/2017 [place] Caterina Abad, Z01.810 Encounter for 1:45p Cardiology Of Jamia preprocedural [facility] cardiovascular examination N83.202 Unspecified ovarian cyst, left side I51.7 Cardiomegaly I10 Essential (primary) hypertension Z82.49 Family hx of ischem heart dis and oth dis of the circ sys Office Visit 02/02/2017 9:40a [facility] Internal Amaris Gorman, I10 Essential ( primary) Medicine - Ccmob N.P. hypertension F41.9 Anxiety disorder, unspecified Office Visit 01/26/2017 4:00p [facility] Internal Amaris Gorman, Z01.818 Encounter for other Medicine - N.P. preprocedural Ccmob examination I10 Essential (primary) hypertension E78.00 Pure hypercholesterolemia, unspecified G47.33 Obstructive sleep apnea (adult) (pediatric) Office Visit 01/19/2017 2:00p [place] [facility] Caterina Abad, Armando0 Essential (primary) Of Kenton Blandon hypertension E78.00 Pure hypercholesterolemia, unspecified G47.33 Obstructive sleep apnea (adult) (pediatric) Z01.810 Encounter for preprocedural cardiovascular examination N83.202 Unspecified ovarian cyst, left side R07.9 Chest pain, unspecified I51.7 Cardiomegaly Z68.42 Body mass index (BMI) 45.0-49.9, adult Office Visit 01/15/2017 4:20p [facility] Internal Amaris Gorman, I10 Essential ( primary) Medicine - Ccmob N.P. hypertension N83.292 Other ovarian cyst, left side Office Visit 12/17/2016 10:50a [facility] Internal Óscar Byers H68.003 Unspecified Medicine - Jamia Davison,FACP Eustachian Suite R salpingitis, bilateral Office Visit 11/26/2016 11:00a [facility] Internal Amaris Gorman, Z00.00 Encntr for general Medicine - N.P. adult medical exam Ccmob w/o abnormal findings Z12.31 Encntr screen mammogram for malignant neoplasm of breast I10 Essential (primary) hypertension G47.33 Obstructive sleep apnea (adult) (pediatric) E78.00 Pure hypercholesterolemia, unspecified Z11.51 Encounter for screening for human papillomavirus (HPV) Office Visit 11/19/2016 9:40a [facility] Internal Amaris Gorman, I10 Essential ( primary) Medicine - Ccmob N.P. hypertension J01.90 Acute sinusitis, unspecified Office Visit 11/04/2016 2:30p [facility] Dermatology Larry Mancilla, L82.1 Other seborrheic MD keratosis L57.0 Actinic keratosis Office Visit 10/13/2016 Pulmonology And Ceci G47.33 Obstructive sleep 2:30p Sleep Services Of DOMO Valera RN, apnea (adult) [facility] (pediatric) E66.01 Morbid (severe) obesity due to excess calories Z68.42 Body mass index (BMI) 45.0-49.9, adult Office Visit 09/09/2016 4:00p [facility] Internal Amaris Gorman, N83.292 Other ovarian Medicine - Ccmob N.P. cyst, left side E66.8 Other obesity Office Visit 06/30/2016 [facility] Internal Amaris Gorman, J20.9 Acute bronchitis , 4:00p Medicine - Ccmob N.P. unspecified Office Visit 06/29/2016 Pulmonology And Ceci G47.33 Obstructive sleep 8:15a Sleep Services Of DOMO Valera RN, apnea (adult) [facility] PRESCHOOL AIDE-BC (pediatric) R09.81 Nasal congestion E66.01 Morbid (severe) obesity due to excess calories Z68.43 Body mass index (BMI) 50-59.9 , adult Office Visit 06/26/2016 9:20a [facility] Internal Avtar Beulah, J01.90 Acute sinusitis, Medicine - Ccmob UNIX CONSULTANT unspecified J20.9 Acute bronchitis, unspecified Office Visit 05/01/2016 4:00p [facility] Internal Amaris Gorman, H66.92 Otitis media, Medicine - N.P. unspecified, left Ccmob ear J01.20 Acute ethmoidal sinusitis, unspecified Office Visit 04/03/2016 8:40a [facility] Internal Amaris Gorman, I10 Essential ( primary) Medicine - Ccmob N.P. hypertension R73.01 Impaired fasting glucose M67.442 Ganglion, left hand J01.00 Acute maxillary sinusitis, unspecified Office Visit 01/28/2016 Pulmonology And Ceci G47.33 Obstructive sleep 3:45p Sleep Services Of DOMO Valera, CHARITY, apnea (adult) [facility] BE[place] (pediatric) E66.01 Morbid (severe) obesity due to excess calories Z68.43 Body mass index (BMI) 50-59.9 , adult Office Visit 12/11/2015 Pulmonology And Ceci G47.33 Obstructive sleep 8:00a Sleep Services Of DOMO Valera RN, apnea (adult) [facility] GREY (pediatric) E66.01 Morbid (severe) obesity due to excess calories Z68.43 Body mass index (BMI) 50-59.9 , adult J95.89 Oth postproc complications and disorders of resp sys, NEC Office Visit 11/11/2015 8:45a Pulmonology And Sleep Kimber Fraire, R06.83 Snoring Services Of [facility] E66.01 Morbid (severe) obesity due to excess calories Office Visit 10/03/2015 10:00a [facility] Internal Amaris Gorman, Z00.00 Encntr for Medicine - Ccmob N.P. general adult medical exam w/o abnormal findings Z12.31 Encntr screen mammogram for malignant neoplasm of breast I10 Essential (primary) hypertension E78.0 Pure hypercholesterolemia E66.01 Morbid (severe) obesity due to excess calories J30.9 Allergic rhinitis, unspecified E55.9 Vitamin D deficiency, unspecified R06.83 Snoring Office Visit 07/17/2015 1:40p [facility] Internal Amaris Gorman, J01.00 Acute maxillary Medicine - N.P. sinusitis, Ccmob unspecified J18.9 Pneumonia, unspecified organism Office Visit 06/17/2015 9:20a [facility] Internal Medicine - Ccmob Avtar Riojas NP R05 Cough R50.9 Fever, unspecified J01.90 Acute sinusitis, unspecified R11.0 Nausea J01.00 Acute maxillary sinusitis, unspecified Office Visit 05/24/2015 11:20a [facility] Internal Amaris Gorman, J01.00 Acute maxillary Medicine - N.P. sinusitis, Ccmob unspecified H10.9 Unspecified conjunctivitis Office Visit 04/10/2015 11:20a [facility] Internal Amaris Gorman J01.00 Acute maxillary Medicine - N.P. sinusitis, Ccmob unspecified L03.115 Cellulitis of right lower limb L03.116 Cellulitis of left lower limb Office Visit 01/10/2015 9:40a [facility] Internal Avtar Riojas NP 686.8 Local Infection Medicine - Skin & Subcutaneous Ccmob Tissue Other Spec Office Visit 01/08/2015 3:00p [facility] Internal Avtar Riojas NP 686.8 Local Infection Medicine - Skin & Subcutaneous Ccmob Tissue Other Spec Office Visit 12/24/2014 1:40p [facility] Internal Avtar Riojas NP 461.0 Sinusitis Acute Medicine - Maxillary Ccmob Office Visit 07/18/2014 3:00p [facility] Internal Amaris Gorman, 461.9 Sinusitis Acute Medicine - N.P. Unspec Ccmob 054.79 Herpes Simplex Other 300.00 Anxiety State Unspec 461.0 Sinusitis Acute Maxillary Office Visit 05/21/2014 2:20p [facility] Internal Amaris Gorman, 461.9 Sinusitis Acute Medicine - Ccmob N.P. Unspec 300.00 Anxiety State Unspec 461.0 Sinusitis Acute Maxillary Office Visit 04/19/2014 10:30a [facility] Internal Avtar Riojas, 466.0 Bronchitis Acute Medicine - Ccmob UNIX CONSULTANT Office Visit 04/09/2014 3:15p [place] [facility] Caterina 786.50 Pain Chest Unspec Of Kenton Abad M.D. 401.1 Hypertension Benign 427.60 Premature Beats Unspec 278.00 Obesity Unspec Office Visit 03/23/2014 11:20a [facility] Internal Amaris Gorman, 461.9 Sinusitis Acute Medicine - N.P. Unspec Ccmob Office Visit 02/26/2014 9:20a [facility] Internal Amaris Douglasumm, V70.0 Examination Medicine - N.P. General Medical Ccmob Routine AT Health Care Facility V72.31 Routine [employer] Examination V76.10 Screening For Malignant Neoplasm Breast 401.1 Hypertension Benign 272.4 Hyperlipidemia Other Unspec 268.9 Vitamin D Deficiency Unspec 786.50 Pain Chest Unspec 112.3 Candidiasis Skin & Nails 278.01 Obesity Morbid Office Visit 01/31/2014 2:00p [facility] Internal Amaris Varn, 461.9 Sinusitis Acute Medicine - Ccmob N.P. Unspec Office Visit 10/16/2013 2:40p [facility] Internal Amaris Varn, 691.8 Dermatitis Atopic Medicine - Ccmob N.P. & Related Conditions Other 477.9 Rhinitis Allergic Cause Unspec Office Visit 08/04/2013 11:40a [facility] Arnoldo Ramirezamado Gorman, 461.9 Sinusitis Acute Medicine - Ccmob N.P. Unspec 686.9 Local Infection Of Skin And Subcutaneous Tissue Unspec Office Visit 05/16/2013 8:40a [facility] Internal Amaris Varn, 461.9 Sinusitis Acute Medicine - Ccmob N.P. Unspec 786.50 Pain Chest Unspec Office Visit 02/21/2013 4:20p [facility] Internal Amaris Gorman, 461.9 Sinusitis Acute Medicine - Ccmob N.P. Unspec 578.1 Blood In Stool Melena Office Visit 01/20/2013 2:00p [facility] Internal Amaris Gorman, 696.1 Psoriasis Other Medicine - Ccmob N.P. Office Visit 11/23/2012 11:40a [facility] Internal Amaris Gorman, 300.00 Anxiety State Medicine - Ccmob N.P. Unspec 477.9 Rhinitis Allergic Cause Unspec Office Visit 09/08/2012 12:30p [facility] Internal Aby Bah, 461.9 Sinusitis Acute Medicine - N.P. Unspec Ccmob Office Visit 07/13/2012 3:00p [facility] Arnoldo Gorman, 462 Pharyngitis Acute Medicine - N.P. Ccmob 388.70 Otalgia & Earache Unspec Office Visit 06/23/2012 11:20a [facility] Internal Amaris Gorman, 461.9 Sinusitis Acute Medicine - N.P. Unspec Ccmob Office Visit 05/16/2012 1:00p [facility] Internal Amaris Douglasumm, 466.0 Bronchitis Acute Medicine - N.P. Ccmob Office Visit 04/29/2012 11:40a Improvement Manager Internal Amaris Douglasumm, 466.0 Bronchitis Acute Medicine - N.P. Ccmob Office Visit 04/05/2012 9:00a [facility] Internal Amaris Douglasumm, V70.0 Examination Medicine - N.P. General Medical Ccmob Routine AT Health Care Facility V72.31 Routine [employer] Examination V76.10 Screening For Malignant Neoplasm Breast 401.1 Hypertension Benign 272.4 Hyperlipidemia Other Unspec Office Visit 03/31/2012 4:20p [facility] Internal Evelyn Barraza, 682.8 Cellulitis & Medicine - M.D., FACP Abscess Other Spec Ccmob Sites Office Visit 03/23/2012 10:20a [facility] Internal Amaris Douglasumm, 682.8 Cellulitis & Medicine - N.P. Abscess Other Spec Ccmob Sites Office Visit 03/15/2012 9:17a [facility] 786.09 Dyspnea & Disorder [place] Jamia Salazar Respiratory Abnormalities Other 401.9 Hypertension Unspec Office Visit 03/01/2012 1:20p [facility] Internal Amaris Vita, 401.1 Hypertension Benign Medicine - N.P. Ccmob 112.3 Candidiasis Skin & Nails Office Visit 01/18/2012 4:00p [facility] Internal Amaris Vita, 401.1 Hypertension Benign Medicine - N.P. Ccmob 477.9 Rhinitis Allergic Cause Unspec Office Visit 12/31/2011 10:20a [facility] Internal Amaris Varn, 401.1 Hypertension Benign Medicine - N.P. Ccmob Office Visit 12/16/2011 10:00a [facility] Internal Amaris Vita, 401.1 Hypertension Benign Medicine - N.P. Ccmob 477.9 Rhinitis Allergic Cause Unspec Office Visit 10/27/2011 2:20p Improvement Manager Internal Amaris Varn, 401.1 Hypertension Benign Medicine - N.P. Ccmob Office Visit 10/06/2011 4:00p [facility] Internal Amaris Vita, 724.5 Backache Unspec Medicine - N.P. Ccmob Office Visit 09/30/2011 11:40a [facility] Internal Amaris Gorman, 401.1 Hypertension Benign Medicine - N.P. Ccmob Office Visit 03/10/2011 1:20p DO Not Use Amaris Varn, V70.0 Examination General [facility] N.P. Medical Routine AT Health Care Facility V72.31 Routine [employer] Examination V76.10 Screening For Malignant Neoplasm Breast 401.1 Hypertension Benign 272.4 Hyperlipidemia Other Unspec 477.9 Rhinitis Allergic Cause Unspec 627.1 Postmenopausal Bleeding 278.01 Obesity Morbid 696.1 Psoriasis Other 112.3 Candidiasis Skin & Nails Office Visit 10/31/2008 4:30a [facility] Meño 820.8 FX Unspec Part Assoc,stephanie Zamora M.D. Of Neck Of Femur Hospitalists Closed Office Visit 10/26/2006 11:15a DO Not Use Amaris Varn, 569.3 Hemorrhage [facility] N.P. Rectum & Anus 401.1 Hypertension Benign Office Visit 06/22/2006 DO Not Use Amaris Varn, V72.31 Routine [employer] 9:30a [facility] N.P. Examination Office Visit 12/16/2005 [place] [facility] Qutaybeh S. 401.0 Hypertension 2:00p Jill Javed.DDeejay 272.4 Hyperlipidemia Other Unspec Office Visit 12/09/2005 [place] Qutaybeh S. 401.0 Hypertension 3:20p Cardiology Jamia Javed Malignant 272.4 Hyperlipidemia Other Unspec Office Visit 11/26/2005 3:00p [place] [facility] Qutaybeh S. 786.50 Pain Chest Jamia Javed Unspec 786.59 Pain Chest Other 427.1 Paroxysmal Ventricular Tachycardia 272.4 Hyperlipidemia Other Unspec Plan of Treatment Future Appointment(s):02/21/2019 4:15 pm - Jacey Delarosa MD at [facility] Cdbnenweqpd16/26/2019 2:00 pm - Ccei Valera DNP, RN, PRESCHOOL AIDE-BC at [facility] Of [facility]02/01/2019 2:20 pm - Amaris Gorman, N.P. at [facility] Internal Medicine - Ccmob10/20/2018 - Amaris Gorman, N.P.K92.1 [facility] Labs:CBC Auto Diff, Ordered: 10/20/18Comments:To further evaluate the blood in your stools I have reordered a complete blood count.J01.90 Acute sinusitis, unspecifiedNew Medication:Amoxicillin/Clavulanate Potassium 875-125 mg - one tablet by mouth twice daily for 10 daysComments:For your sinus infection: I sent a prescription for Augmentin to the pharmacy. Take 1 tablet every 12 hours until they are gone. Take this with a little food.I encourage you to use the saline nasal spray regularly. If your symptoms do not improve call the office.
[2018-11-10 07:36] VITALS: BP 140/80
--- NOTE | 2018-11-10 07:42 | UC ---
Hand/Wrist HPI - HPI Summary HPI Summary: Ms. Rodriguez smashed her right hand in a car door yesterday. She's been icing it as it swelled immediately. - History Of Current Complaint Chief Complaint: UCUpperExtremity Stated Complaint: RT HAND INJURY Time Seen by Provider: 11/10/18 07:36 Hx Obtained From: Patient Onset/Duration: Sudden Onset Severity Initially: Moderate Severity Currently: Moderate Pain Intensity: 5 Character Of Pain: Aching Aggravating Factor(s): Movement Alleviating Factor(s): Ice Associated Signs And Symptoms: Positive: Swelling, Bruising - Allergies/Home Medications Allergies/Adverse Reactions: Allergies Allergy/AdvReac Type Severity Reaction Status Date / Time ciprofloxacin Allergy Rash Verified 11/10/18 07:36 Home Medications: Home Medications Bifidobacterium Infantis [Align] 10.5 tab PO DAILY 11/10/18 [History Confirmed 11/10/18] Cholecalciferol (Vitamin D3) [D3-2000] 2,000 unit PO DAILY 11/10/18 [History Confirmed 11/10/18] Docusate Sodium [Col-Rite] 100 mg PO DAILY 11/10/18 [History Confirmed 11/10/18] Multivitamin/Iron/Folic Acid [Centrum Adults Tablet] 1 tab PO DAILY 11/10/18 [ History Confirmed 11/10/18] Simvastatin TAB(NF) [Zocor 20 MG (NF)] 20 mg PO DAILY 11/10/18 [History Confirmed 11/10/18] PMH/Surg Hx/FS Hx/Imm Hx Previously Healthy: Yes Cardiovascular History: Hypertension - Surgical History Surgical History: Yes Surgery Procedure, Year, and Place: tonsils. D&C 06/2011 endometrial polyp. heart cath 2005 - Family History Known Family History: Negative: Blood Disorder - Social History Alcohol Use: None Substance Use Type: None Smoking Status (MU): Never Smoked Tobacco - Immunization History Most Recent Tetanus Shot: 2009 Review of Systems All Other Systems Reviewed And Are Negative: Yes Motor: Positive: Negative Neurovascular: Positive: Negative Musculoskeletal: Positive: Other: - swelling Neurological: Positive: Negative Physical Exam - Summary Physical Exam Summary: She is nontoxic in appearance with stable vital signs. Triage Information Reviewed: Yes Appearance: Well-Appearing Vital Signs: Initial Vital Signs Temp 97.9 F 11/10/18 07:31 Pulse 61 11/10/18 07:31 Resp 20 07/11/19 07:31 BP 140/80 11/10/18 07:31 Pulse Ox 100 11/10/18 07:31 Vital Signs Reviewed: Yes Musculoskeletal Exam: Other - She has swelling, ecchymosis and tenderness over her thenar eminence and dorsally over the first and second metatarsals. She has full range of motion Musculoskeletal: Positive: Strength Intact, ROM Intact Neurological Exam: Normal Skin Exam: Normal Hand/Wrist Course/Dx - Differential Dx/Diagnosis Provider Diagnosis: Hand contusion Discharge - Sign-Out/Discharge Documenting (check all that apply): Patient Departure All imaging exams completed and their final reports reviewed: Yes - Discharge Plan Condition: Stable Disposition: HOME Patient Education Materials: Hand Sprain (ED) Referrals: Amaris Gorman NP [Primary Care Provider] - Additional Instructions: Your blood pressure was slightly high here, I recommend following up with your PCP - Billing Disposition and Condition Condition: STABLE Disposition: Home
== END 2018-11-10 08:30 | disposition home or self-care (01) ==
LOC: UCEAST 07:22
DX: S60.221A Contusion of right hand, initial encounter (principal); W23.0XXA Caught, crushed, jammed, or pinched between moving objects, initial encounter; Y92.810 Car as the place of occurrence of the external cause; I10 Essential (primary) hypertension
CPT/HCPCS: 99213; G0463